=== PATIENT | female | born 1990 | race Caucasian/White ===

== ENCOUNTER 2020-06-17 13:14 | Outpatient (REF) | payer MEDICAID, SELFPAY ==
[2020-06-17 15:13] LABS: Hematocrit 40.2 % (37-47); Hemoglobin 13.8 g/dl (12.0-16.0); Mean Corpuscular HGB Conc 34.3 g/dl (31.0-35.0); Mean Corpuscular Volume 90.3 fL (80-98); Mean Platelet Volume 10.8 fL (9.4-12.3); Platelet Count 329 X10*3/uL (160-400); Red Blood Count 4.45 X10*6/uL (4.20-5.50); Red Cell Distribution Width 11.8 % (11.0-16.0)
[2020-06-17 16:48] LABS: CT PCR NOT DETECTED (Not Detect.); NG PCR NOT DETECTED (Not Detect.)
[2020-06-17 16:51] LABS: Syphilis Screen Nonreactive (Nonreactive)
[2020-06-18 04:45] LABS: HBsAGNum1 0.23 S/CO (0.00-0.99); HIV AB/AG Nonreactive (Nonreactive); HIV Num 1 0.08 S/CO (0.00-0.99); Hepatitis B Surface Antigen Negative (Negative); ~HepC Num1 0.06 S/CO (0.00-0.79); ~Hepatitis C Antibody Nonreactive (Nonreactive)
[2020-06-18 13:26] LABS: BV Int Neg Control Negative (Negative); BV Int Pos Control Positive (Positive)
== END 2020-06-17 13:15 | disposition home or self-care (01) ==
LOC: HO.LAB 13:14
PROVIDERS: Visit Provider Advanced Practice Midwife
DX: R10.2 Pelvic and perineal pain (principal); B96.89 Other specified bacterial agents as the cause of diseases classified elsewhere; N76.0 Acute vaginitis; Z12.4 Encounter for screening for malignant neoplasm of cervix; Z30.431 Encounter for routine checking of intrauterine contraceptive device; Z20.2 Contact with and (suspected) exposure to infections with a predominantly sexual mode of transmission
CPT/HCPCS: 36415; 85027; 86780; 86803; 87340; 87389; 87480; 87491; 87510; 87591; 87660; 88142; 99212

== ENCOUNTER → 2020-07-09 09:59 | Outpatient (BNVA) | payer MEDICAID, SELFPAY | PROVIDERS: Visit Provider Advanced Practice Midwife | DX: Z30.433 Encounter for removal and reinsertion of intrauterine contraceptive device (principal); Z87.891 Personal history of nicotine dependence | CPT/HCPCS: 58301; 58300; 81025; 99212 ==

== ENCOUNTER 2021-06-28 11:46 | Emergency (ER) | payer MEDICAID, SELFPAY ==
[2021-06-28 12:00] VITALS: BP 130/86; PULSE 80; RESP 16; TEMP 36.8; O2SAT 99; BMI 37.0
[2021-06-28 12:41] LABS: COVID-19 Test Positive (Negative)
[2021-06-28 12:48] LABS: Strep A Nucleic Acid Negative (Negative)
--- NOTE | 2021-06-28 12:51 | ED.GENADULT ---
HPI - General Adult General Chief complaint: General Medical Stated complaint: Sore throat/Headache Time Seen by Provider: 06/28/21 12:51 Source: patient Mode of arrival: ambulatory Limitations: no limitations History of Present Illness HPI narrative: 31-year-old female presents to the ER with complaints of sore throat and congestion for the last 2 days. She has not vaccinated for COVID-19. She has a mild dry cough but no shortness of breath or dyspnea. She has no chest pain or fevers. Some mild body aches and headache. She lives at home with her kids who are well. She has had no known COVID-19 exposures. MD complaint: Sore throat congestion Onset (ago): day(s) (2) Location: mouth, chest and back Radiation: non-radiation Severity: mild Quality: aching Pain Consistency: intermittent Relieving factors: none Exacerbating factors: none Associated symptoms: cough, headaches, loss of appetite and malaise Treatments prior to arrival: none Related Data Home Medications Medication Instructions Recorded Confirmed levonorgestrel 20 mcg/24 hours (7 INTRAUTERINE 07/09/20 yrs) 52 mg intrauterine device (Mirena) Previous Rx's Medication Instructions Recorded metronidazole 500 mg tablet 500 mg PO BID #14 tab 06/17/20 (Flagyl) Allergies Allergy/AdvReac Type Severity Reaction Status Date / Time No Known Allergies Allergy Verified 07/09/20 10:29 Review of Systems Review of Systems: Constitutional: No Fever, No Chills ENT/Mouth: + sore throat, No Rhinorrhea, No Swallowing Difficulty Cardiovascular: No Chest Pain, No SOB, No Orthopnea, No Edema Respiratory: + Cough, No Sputum, No Wheezing, No dyspnea Gastrointestinal: No Nausea, No Vomiting, No Diarrhea, No abdominal Pain Musculoskeletal: No joint pain, No Myalgias Skin: No Skin Lesions, No rash Neuro: No Weakness, No Numbness, No Dizziness, + Headache Psych: + Anxiety/Panic Heme/Lymph: No Lymphadenopathy PMFSH Family History Family History Mother HTN (hypertension) Social History Social History Alcohol intake: never Patient Tobacco Use Status: Never used Tobacco Use of substances other than those prescribed or required for medical reasons: No Advance Directives: No Advance Directives Information Provided: No Gender identity: Female Physical Exam Vital Signs: Vital Signs: Last Vital Signs Temp 98.3 F 06/28/21 12:00 Pulse 80 06/28/21 12:00 Resp 16 06/28/21 12:00 BP 130/86 06/28/21 12:00 Pulse Ox 99 06/28/21 12:00 BMI result Body Mass Index 37.0 Appearance: Alert. Oriented X3. No acute distress. HEENT: normal inspection CVS: Normal heart rate and rhythm. Pulses normal. Respiratory: No respiratory distress. Lungs CTAB Skin: Skin warm and dry. Normal skin color. Normal skin turgor. No rashes. Extremities: normal inspection, normal ROM Neuro: Oriented X 3. Grossly normal Course Course Course Narrative: 31-year-old female with no significant medical history presents to the ER with congestion and sore throat for the last couple of days. She has other signs and symptoms of mild COVID-19 disease. Her COVID-19 test today was positive. Her vital signs are normal with SpO2 99% on room air and her lungs are clear. She was counseled on diagnosis, management, and warning signs to come back to the emergency department for. At this time she is stable for discharge home with supportive care. Medical Decision Making Lab Data Labs: Lab Results 06/28/21 06/28/21 Range/Units 12:01 12:01 COVID-19 (BRYAN) Positive A (Negative) COVID-19 Clin Com See Note S. pyogenes GrpA AMPARO Negative (Negative) Critical Care Time Critical Care Time Critical Care Time: No Discharge Plan Discharge Clinical Impression: COVID-19 Patient Disposition: Home, Self-Care Instructions: Covid-19 Viral Syndrome and Novel Coronavirus (ED) Hey/Ath Additional Instructions: You were found to be COVID-19 POSITIVE today. Your exam and oxygen levels were normal. Rest. Drink plenty of fluids. Do not go out in public for the next 10 days. Wear your mask at home and disinfect all of the surfaces frequently to help prevent the spread of the disease. Take over the counter cold/flu medications as needed for your symptoms. Take Tylenol and/or Motrin as needed for fevers and body aches. Follow up with your doctor this week. If you develop difficulty breathing or any other concerning symptom come back to the ER for further evaluation. Prescriptions: No Action metronidazole [Flagyl] 500 mg tablet 500 mg PO BID Qty: 14 RF: 0 Mirena 20 mcg/24 hours (6 yrs) 52 mg intrauterine device intrauterine RF: 0 Interventions: ED Discharge Assessment Last Done: 06/28/21 13:05
== END 2021-06-28 13:06 | disposition home or self-care (01) ==
PROVIDERS: Emergency Provider Emergency Medicine
DX: U07.1 COVID-19 (principal); J02.9 Acute pharyngitis, unspecified
CPT/HCPCS: 36415; 87635; 87651; 99283

== ENCOUNTER 2021-10-13 13:25 | Emergency (ER) | payer MEDICAID, SELFPAY ==
[2021-10-13 14:39] VITALS: BP 127/83; PULSE 82; RESP 18; TEMP 36.8; O2SAT 98; BMI 39.0
[2021-10-13 15:06] LABS: IDNOW Serial# 16C4AD1C
[2021-10-13 15:07] LABS: COVID-19 Test Negative (Negative)
--- NOTE | 2021-10-13 15:58 | ED_ITS ---
HPI - General Adult General Chief complaint: General Medical Stated complaint: fever headache Time Seen by Provider: 10/13/21 15:22 Source: patient Mode of arrival: ambulatory Limitations: no limitations History of Present Illness HPI narrative: 31 y/o female with no medical history presents to the ER with 6 days of nausea, decreased PO intake, malaise and intermittent fever and chills. She states when she 1st developed symptoms last week she saw her doctor, tested negative for COVID and Flu and was told it was a self-limited GI bug that would get better in 2 days. She reports ongoing nausea, dry heaving and extreme smell sensitivity where everything she tries to eat smells awful. She reports a normal BM 6 days ago but none since. She has not eaten solid food since then. She reports decreased urination. No abdominal pain. Denies chance of , has IUD but is sexually active. MD complaint: nausea, decreased PO intake Onset (ago): day(s) (6) Location: abdomen Radiation: non-radiation Severity: moderate Severity scale (1-10): 6 Quality: aching Pain Consistency: intermittent Relieving factors: none Exacerbating factors: eating Associated symptoms: cough, fever/chills, headaches, loss of appetite, malaise and weakness Treatments prior to arrival: none Related Data Home Medications Medication Instructions Recorded Confirmed levonorgestrel 20 mcg/24 hours (7 INTRAUTERINE 07/09/20 yrs) 52 mg intrauterine device (Mirena) Previous Rx's Medication Instructions Recorded metronidazole 500 mg tablet 500 mg PO BID #14 tab 06/17/20 (Flagyl) ondansetron 4 mg disintegrating 4 mg PO Q8H PRN #10 tab 10/13/21 tablet Allergies Allergy/AdvReac Type Severity Reaction Status Date / Time No Known Allergies Allergy Verified 07/09/20 10:29 Review of Systems Review of Systems: Constitutional: + Fever, +Chills ENT/Mouth: No sore throat, No Rhinorrhea, No Swallowing Difficulty Eyes: No Eye Pain, No Swelling, No Redness Cardiovascular: No Chest Pain, No SOB, No Orthopnea, No Edema Respiratory: + Cough, No Sputum, No Wheezing, No dyspnea Gastrointestinal: + Nausea, + Vomiting, No Diarrhea, No abdominal Pain, No Hematochezia, No Melena Genitourinary: No Dysuria, No Urinary Frequency, No Hematuria Musculoskeletal: No joint pain, No Myalgias Skin: No Skin Lesions, No rash Neuro: + Weakness, No Numbness, No Dizziness, + Headache Psych: +Anxiety/Panic, No Depression Heme/Lymph: No Bruising, No Lymphadenopathy Endocrine: No Polyuria, No Polydipsia PMF Family History Family History Mother HTN (hypertension) Social History Social History Alcohol intake: never Patient Tobacco Use Status: Never used Tobacco Advance Directives: No Advance Directives Information Provided: No Gender identity: Female Physical Exam ED Vital Signs: Vital Signs - 24 hr 10/13/21 14:39 10/13/21 16:41 Temperature 98.3 F 98.0 F Pulse Rate 82 80 Respiratory Rate 18 18 Blood Pressure 127/83 128/82 Pulse Oximetry 98 98 BMI result Body Mass Index 39.0 Appearance: Alert. Oriented X3. No acute distress. Eyes: Pupils equal, round and reactive to light. ENT: Pharynx normal. Moist mucus membranes. Neck: Normal inspection. Neck supple. CVS: Normal heart rate and rhythm. Pulses normal. Respiratory: No respiratory distress. Breath sounds normal. Abdomen: Obese, Soft and nontender. +BS present but decreased x4 Skin: Skin warm and dry. Normal skin color. Normal skin turgor. No rashes. Extremities: No lower extremity edema. Neuro: Oriented X 3. No motor deficit. No sensory deficit. Course Course Course Narrative: 31 y/o female presenting with 6 days of nausea, decreased PO intake, intermittent vomiting, fevers/chills (now improved). Recently negative for COVID and FLu but was tested on the day symptoms started. Will retest now, she is unvaccinated. Her VS are normal and her exam is unremarkable. Will check basic labs, give IVF and zofran and reassess. Reevaluation(s) Reevaluation #1: Labs are unremarkable. Urinalysis is positive for leukocyte esterase and dark in color. There is also significant amount of squamous cells concerning for contamination. She has no urinary symptoms. Will hold off on antibiotics for now and follow up with the urine culture. She is tolerating emmett glenis and bites of crackers. She states the food tastes ?old. ? She has no appetite but is not vomiting. We discussed how her symptoms are most likely due to a viral illness and will improve on their own. Will send sublingual Zofran to her pharmacy and encourage p.o. at home. At this time she is stable for discharge home with supportive care and outpatient follow-up. Medical Decision Making Lab Data Result diagrams: 10/13/21 16:02 10/13/21 16:02 Labs: Lab Results 10/13/21 10/13/21 10/13/21 Range/Units 14:45 16:02 16:02 WBC 5.7 (4.8-10.8) X10*3/uL RBC 4.64 (4.20-5.50) X10*6/uL Hgb 14.2 (12.0-16.0) g/dl Hct 41.6 (37.0-47.0) % MCV 89.7 (80.0-98.0) fL MCH 30.6 (27.0-33.0) pg MCHC 34.1 (31.0-35.0) g/dl RDW 11.9 (11.0-16.0) % Plt Count 285 (160-400) X10*3/uL MPV 10.0 (9.4-12.3) fL Immature Gran % (Auto) 0.4 (0.0-0.4) % Neut % (Auto) 45.2 (45-73) % Lymph % (Auto) 47.6 H (20-40) % [place] % (Auto) 5.4 (2-11) % Eos % (Auto) 0.7 (0-4) % Baso % (Auto) 0.7 (0-2) % Lymph # (Auto) 2.7 (1.2-4.9) X10*3/uL [place] # (Auto) 0.3 (0.1-1.2) X10*3/uL Eos # (Auto) 0.0 (0.0-0.4) X10*3/uL Baso # (Auto) 0.0 (0.0-0.2) X10*3/uL Abs Immat Gran (auto) 0.02 (0.00-0.03) X10*3/uL Absolute Neuts (auto) 2.6 (2.0-8.3) x10*3/uL Absolute Nucleated RBC 0.000 (0.0-0.012) X10*3/uL Nucleated RBC % (auto) 0.0 (0.0-0.2) /100WBC Sodium 140 (135-145) mmol/L Potassium 4.2 (3.3-5.1) mmol/L Chloride 103 (96-108) mmol/L Carbon Dioxide 31 H (22-29) mmol/L Anion Gap 10 L (12-20) BUN 5 L (9-16) mg/dL Creatinine 0.64 (0.5-1.4) mg/dL Estim Creat Clear Calc 130.1 Estimated GFR > 60 Random Glucose 87 (60-115) mg/dL Calcium 9.6 (8.4-10.2) mg/dL Magnesium 2.8 H (1.6-2.6) mg/dL Total Bilirubin 0.3 (0.0-1.0) mg/dL Direct Bilirubin < 0.2 (0.0-0.5) mg/dL AST 75 H (5-31) U/L ALT 102 H (0-31) U/L Alkaline Phosphatase 120 H (39-117) U/L Total Protein 7.5 (6.5-8.0) g/dL Albumin 4.4 (3.5-5.0) g/dL Urine Color Urine Appearance Urine pH (5.0-8.0) Ur Specific [place] (1.005-1.025) Urine Protein (NEG-TRACE) MG/DL Urine Glucose (UA) (NEG) MG/DL Urine Ketones (NEG) MG/DL Urine Blood (NEG) Urine Nitrite (NEG) Ur Leukocyte Esterase (NEG) Urine RBC (0) /HPF Urine WBC (0-4) /HPF Ur Squamous Epith Cells /LPF Urine Bacteria /LPF Urine Mucus /LPF Urine Test (NEGATIVE) COVID-19 ([facility]) Negative (Negative) COVID-19 Clin Com See Note 10/13/21 10/13/21 Range/Units 16:02 16:02 WBC (4.8-10.8) X10*3/uL RBC (4.20-5.50) X10*6/uL Hgb (12.0-16.0) g/dl Hct (37.0-47.0) % MCV (80.0-98.0) fL MCH (27.0-33.0) pg MCHC (31.0-35.0) g/dl RDW (11.0-16.0) % Plt Count (160-400) X10*3/uL MPV (9.4-12.3) fL Immature Gran % (Auto) (0.0-0.4) % Neut % (Auto) (45-73) % Lymph % (Auto) (20-40) % [place] % (Auto) (2-11) % Eos % (Auto) (0-4) % Baso % (Auto) (0-2) % Lymph # (Auto) (1.2-4.9) X10*3/uL [place] # (Auto) (0.1-1.2) X10*3/uL Eos # (Auto) (0.0-0.4) X10*3/uL Baso # (Auto) (0.0-0.2) X10*3/uL Abs Immat Gran (auto) (0.00-0.03) X10*3/uL Absolute Neuts (auto) (2.0-8.3) x10*3/uL Absolute Nucleated RBC (0.0-0.012) X10*3/uL Nucleated RBC % (auto) (0.0-0.2) /100WBC Sodium (135-145) mmol/L Potassium (3.3-5.1) mmol/L Chloride (96-108) mmol/L Carbon Dioxide (22-29) mmol/L Anion Gap (12-20) BUN (9-16) mg/dL Creatinine (0.5-1.4) mg/dL Estim Creat Clear Calc Estimated GFR Random Glucose (60-115) mg/dL Calcium (8.4-10.2) mg/dL Magnesium (1.6-2.6) mg/dL Total Bilirubin (0.0-1.0) mg/dL Direct Bilirubin (0.0-0.5) mg/dL AST (5-31) U/L ALT (0-31) U/L Alkaline Phosphatase (39-117) U/L Total Protein (6.5-8.0) g/dL Albumin (3.5-5.0) g/dL Urine Color DK YELLOW Urine Appearance CLOUDY Urine pH 7.0 (5.0-8.0) Ur Specific [place] 1.015 (1.005-1.025) Urine Protein TRACE (NEG-TRACE) MG/DL Urine Glucose (UA) NEG (NEG) MG/DL Urine Ketones NEG (NEG) MG/DL Urine Blood NEG (NEG) Urine Nitrite NEG (NEG) Ur Leukocyte Esterase 3+ H (NEG) Urine RBC 0 (0) /HPF Urine WBC 5-9 H (0-4) /HPF Ur Squamous Epith Cells 4+ /LPF Urine Bacteria NONE /LPF Urine Mucus 4+ /LPF Urine Test NEGATIVE (NEGATIVE) COVID-19 ([facility]) (Negative) COVID-19 Clin Com Discharge Plan Discharge Clinical Impression: Nausea & vomiting Patient Disposition: Home, Self-Care Instructions: Acute Nausea and Vomiting (ED) Additional Instructions: You lab workup today was unremarkable. Your urine test was negative . You most likely have a viral GI bug also known as gastroenteritis. Treatment is supportive care, symptoms usually resolve on their own in 48-72 hours. Recommend rest and plenty of oral hydration. Stick to a bland diet like soup and toast while you are not feeling well. Take the prescribed medication as needed for nausea. Recommend over the counter Pepto Bismol or Imodium for upset stomach and diarrh ea. Follow up with your doctor as needed. If you develop new or worsening symptoms call 911 or come back to the ER for further evaluation. Prescriptions: New ondansetron 4 mg tablet,disintegrating 4 mg PO Q8H PRN (Reason: nausea and vomiting) Qty: 10 0RF No Action metronidazole [Flagyl] 500 mg tablet 500 mg PO BID Qty: 14 0RF Mirena 20 mcg/24 hours (6 yrs) 52 mg intrauterine device intrauterine 0RF Referrals: [facility] [Primary Care Provider] - 2 days Stand Alone Forms: Work/School Release
[2021-10-13] MEDS: 0.9 % Sodium Chloride 1,000 ML 999 ML IVCONT ×2 (16:04→17:07)
[2021-10-13 16:06] LABS: MANUAL DIFF FLAG NO
[2021-10-13 16:09] LABS: Appearance Urine CLOUDY; Basophils Percent Auto 0.7 % (0-2); Color Urine DK YELLOW; Eosinophils Percent Auto 0.7 % (0-4); Glucose Urine UA NEG (NEG); Hematocrit 41.6 % (37.0-47.0); Hemoglobin 14.2 g/dl (12.0-16.0); Imm Gran Abs Auto 0.02 X10*3/uL (0.00-0.03); Imm Gran Pct Auto 0.4 % (0.0-0.4); Leukocyte Esterase Urine 3+ (NEG); Lymphocytes Absolute Auto 2.7 X10*3/uL (1.2-4.9); Lymphocytes Percent Auto 47.6 % (20-40); Mean Corpuscular HGB Conc 34.1 g/dl (31.0-35.0); Mean Corpuscular Hemoglobin 30.6 pg (27.0-33.0); Mean Corpuscular Volume 89.7 fL (80.0-98.0); Monocytes Absolute Auto 0.3 X10*3/uL (0.1-1.2); Monocytes Percent Auto 5.4 % (2-11); Neutrophils Absolute Auto 2.6 x10*3/uL (2.0-8.3); Neutrophils Percent Auto 45.2 % (45-73); Nitrite Urine NEG (NEG); Platelet Count 285 X10*3/uL (160-400); Red Blood Count 4.64 X10*6/uL (4.20-5.50); Red Cell Distribution Width 11.9 % (11.0-16.0); Specific Gravity - Urine 1.015 (1.005-1.025); UACC Culture Trigger YES; Urine Blood NEG (NEG); Urine Ketones NEG (NEG); Urine Protein TRACE MG/DL (NEG-TRACE); White Blood Count 5.7 X10*3/uL (4.8-10.8)
[2021-10-13 16:11] LABS: UPreg QC Valid YES; Urine Pregnancy NEGATIVE (NEGATIVE)
[2021-10-13] MEDS: ondansetron HCL 4 MG/2 ML VIAL IVPUSH (16:15)
[2021-10-13 16:20] LABS: Mucus Urine 4+ /LPF; RBC Urine 0 /HPF (0); Squamous Epithelial Cell Urine 4+ /LPF
[2021-10-13 16:24] LABS: Alanine Aminotransferase 102 U/L (0-31); Albumin Level 4.4 g/dL (3.5-5.0); Alkaline Phosphatase 120 U/L (39-117); Anion Gap 10 (12-20); Aspartate Amino Transferase 75 U/L (5-31); Bilirubin Direct < 0.2 mg/dL (0.0-0.5); Bilirubin Total 0.3 mg/dL (0.0-1.0); Blood Urea Nitrogen 5 mg/dL (9-16); Calcium 9.6 mg/dL (8.4-10.2); Carbon Dioxide 31 mmol/L (22-29); Chloride 103 mmol/L (96-108); Creatinine Clr Calc Pharmacy 130.1; Estimated Glomerular Filt Rate > 60; Glucose Random 87 mg/dL (60-115); Magnesium 2.8 mg/dL (1.6-2.6); Potassium 4.2 mmol/L (3.3-5.1); Sodium 140 mmol/L (135-145); Total Protein 7.5 g/dL (6.5-8.0)
[2021-10-13 16:41] VITALS: BP 128/82; PULSE 80; RESP 18; TEMP 36.7; O2SAT 98
== END 2021-10-13 19:14 | disposition home or self-care (01) ==
PROVIDERS: Physician Assistant; Emergency Provider Emergency Medicine
DX: R11.2 Nausea with vomiting, unspecified (principal); Z20.822 Contact with and (suspected) exposure to COVID-19
CPT/HCPCS: 36415; 80048; 80076; 81001; 81025; 83735; 85025; 87086; 87635; 96361; 96374; 99284; J2405

== ENCOUNTER 2022-08-13 12:15 | Emergency (ER) | payer MEDICAID, SELFPAY ==
--- NOTE | ~2022-08-13 | XR_ITS ---
EXAMINATION: XR KNEE, RIGHT CLINICAL INFORMATION: Clicking with walking COMPARISON: None TECHNIQUE: Four views of the right knee. FINDINGS: No acute fracture or subluxation. Compartmental joint spaces are maintained. No joint effusion. The soft tissues are unremarkable. XR/XR knee RT 4V IMPRESSION: Normal right knee.
[2022-08-13 12:30] VITALS: BP 128/72; PULSE 76; RESP 18; TEMP 36.5; O2SAT 98; BMI 34.0
--- NOTE | 2022-08-13 12:40 | ED.LOWEXIN ---
HPI - Extremity Injury (Lower) General Chief Complaint: Extremity Injury, Lower <Mabel Kearney NP - Last Filed: 08/13/22 12:40> Stated Complaint: r knee inj <Mabel Kearney NP - Last Filed: 08/13/22 12:40> Time Seen by Provider: 08/13/22 13:36 <Mabel Kearney NP - Last Filed: 08/13/22 12:40> Source: patient <Rm Mendoza - Last Filed: 08/13/22 14:02> Limitations: no limitations <Rm Mendoza - Last Filed: 08/13/22 14:02> History of Present Illness HPI Narrative: 32-year-old female presents to the ER complaining of right knee pain. Patient was recently at the gym and felt the pain on the either side of her knee with with a sound of click with flexion extension after doing squats. Patient denies any blunt trauma or falls to the right knee. No prior injuries to this knee. Symptoms are [id number] pain is 6/10. Patient denies nausea vomiting chest pain or shortness of breath and no other complaints at this time. <Rm Mendoza - Last Filed: 08/13/22 14:02> Related Data Home Medications: Home Medications Medication Instructions Recorded Confirmed levonorgestrel 20 mcg/24 hours (8 intrauterine 07/09/20 yrs) 52 mg intrauterine device (Mirena) Previous Rx's Medication Instructions Recorded metronidazole 500 mg tablet 500 mg PO BID #14 tabs 06/17/20 (Flagyl) ondansetron 4 mg disintegrating 4 mg PO Q8H PRN nausea and 10/13/21 tablet vomiting #10 tabs naproxen 500 mg tablet (Naprosyn) 500 mg PO BID PRN pain #30 tabs 08/13/22 <Mabel Kearney NP - Last Filed: 08/13/22 12:40> Allergies/Adverse Reactions: Allergies Allergy/AdvReac Type Severity Reaction Status Date / Time No Known Allergies Allergy Verified 07/09/20 10:29 <Mabel Kearney NP - Last Filed: 08/13/22 12:40> Review of Systems Review of Systems: Constitutional : No Weight loss, No Fever, No Chills, ENT/Mouth : No sore throat Eyes: No vision changes Cardiovascular : No Chest Pain, No SOB Respiratory : No shortness of breath or cough Gastrointestinal : No Nausea, No Vomiting, No Diarrhea Musculoskeletal : Right knee pain Neuro : No headache <Rm Mendoza - Last Filed: 08/13/22 14:02> [facility] Family History Family History: Family History Mother HTN (hypertension) <Mabel Kearney NP - Last Filed: 08/13/22 12:40> Social History Social History: Social History Alcohol intake: never Patient Tobacco Use Status: Never used Tobacco Advance Directives: No Gender identity: Female <Mabel Kearney NP - Last Filed: 08/13/22 12:40> Physical Exam Vital Signs: Vital Signs: Last Vital Signs Temp 97.7 F 08/13/22 12:30 Pulse 76 08/13/22 12:30 Resp 18 08/13/22 12:30 BP 128/72 08/13/22 12:30 Pulse Ox 98 08/13/22 12:30 BMI result Body Mass Index 34.0 <Mabel Kearney NP - Last Filed: 08/13/22 12:40> Vital Signs: Last Vital Signs Temp 97.7 F 08/13/22 12:30 Pulse 76 08/13/22 12:30 Resp 18 08/13/22 12:30 BP 128/72 08/13/22 12:30 Pulse Ox 98 08/13/22 12:30 BMI result Body Mass Index 34.0 <Rm Mendoza - Last Filed: 08/13/22 14:02> Const: General: cooperative, healthy appearing, well developed, alert and awake <Rm Mendoza - Last Filed: 08/13/22 14:02> HEENT: Other: Oropharynx is clear <Rm Mendoza - Last Filed: 08/13/22 14:02> Neck: Neck: Yes normal visual inspection <Rm Mendoza - Last Filed: 08/13/22 14:02> Chest: Chest palpation & inspection: normal inspection of the chest <Rm Mendoza - Last Filed: 08/13/22 14:02> Resp: Effort & Inspection: normal respiratory effort and able to speak in complete sentences <Rm Mendoza - Last Filed: 08/13/22 14:02> Skin: Other: Warm dry no rashes noted <Rm Mendoza - Last Filed: 08/13/22 14:02> Neuro: Other: Patient is alert oriented x3 speech is intact no focal deficit noted <Rm Mendoza - Last Filed: 08/13/22 14:02> Extrem: Other: Right knee positive joint line tenderness, no joint laxity noted on drawer test. Positive pain on Apley's grind test of the right knee. Pain increases flexion-extension. <Rm Mendoza - Last Filed: 08/13/22 14:02> Course Course Course Narrative: This is a rapid medical exam. Defer additional HPI, ROS, PE department provider. 32-year-old female here with right knee pain after working out at the gym yesterday. Will obtain x-ray. Vitals stable <Mabel Kearney NP - Last Filed: 08/13/22 12:40> This is a rapid medical exam. Defer additional HPI, ROS, PE department provider. 32-year-old female here with right knee pain after working out at the gym yesterday. Will obtain x-ray. Vitals stable Right knee pain Right knee meniscal injury Right knee underline Ligament injury less likely Right knee cartilage injury <Rm Mendoza - Last Filed: 08/13/22 14:02> Medical Decision Making Medical Decision Making MDM Narrative: 32-year-old female with atraumatic right knee pain. Patient feels clicking with flexion extension. Pain is increased since recent visit to the gym. No prior injuries to the right knee. On clinical exam symptoms are consistent with potential meniscal injury and are cartilage injury. Neoprene knee brace will be recommended ice rest elevation patient does not want crutches at this time. Will plan to refer to orthopedics. For further evaluation. Plan to discharge patient home on NSAIDs. <Rm Mendoza - Last Filed: 08/13/22 14:02> Radiology Impression Radiologist Impression: Diagnostics DATE TYPE STATUS REF RANGE/AUTHOR Hx Today 12:44 Gurinder Osuna [facility] 32, F0 1990 REG ER, Emergency Minor Care Pivot EX2 -[id number] 5ft 78.925kg BMI: 34.0kg/m? Extremity Injury, Lower Search Chart ONSET No Data to Display No Data to Display No Data to Display Signed Today No Data to Display CURRENT Today 12:30 Diagnostics Reports Gita Purdy 32 F 1990 Allergy/Adv: No Known Allergies [address] [address]UL[place] ReportSigned Patient: Gita PurdyMR#: [id number]: 1990Acct:[id number]/Sex: 32 / FADM Date: 08/13/22Loc: HO.EDAttending Dr: Ordering Physician: Generic ED Physician Date of Service: 08/13/22 Procedure(s): XR knee RT 4V Accession Number(s): [id number] cc: Generic ED Physician~ EXAMINATION: XR KNEE, RIGHT CLINICAL INFORMATION: Clicking with walking COMPARISON: None TECHNIQUE: Four views of the right knee. FINDINGS: No acute fracture or subluxation. Compartmental joint spaces are maintained. No joint effusion. The soft tissues are unremarkable. XR/XR knee RT 4V IMPRESSION: Normal right knee. Dictated By:Gurinder Osuna MDSigned By:<Electronically signed by Gurinder Osuna MD in [place]>08/13/22 1327 DD/ 1244TD/TT: Fitness Consultant: JEREMIAH <Rm Mendoza - Last Filed: 08/13/22 14:02> Discharge Plan Discharge Clinical Impression: Acute pain of right knee <Mabel Kearney NP - Last Filed: 08/13/22 12:40> Patient Disposition: Home, Self-Care <Mabel Kearney NP - Last Filed: 08/13/22 12:40> Instructions: Knee Pain (ED) <DARRELL Wade Last Filed: 08/13/22 12:40> Additional Instructions: Rest ice elevation You may use an [id number] knee brace Follow-up with orthopedics as recommended Your x-ray shows no acute findings but cannot rule out underlying meniscal injury Return if symptoms worsen <DARRELL Wade Last Filed: 08/13/22 12:40> Prescriptions: New naproxen [Naprosyn] 500 mg tablet 500 mg PO BID PRN (Reason: pain) Qty: 30 0RF No Action ondansetron 4 mg tablet,disintegrating 4 mg PO Q8H PRN (Reason: nausea and vomiting) Qty: 10 0RF metronidazole [Flagyl] 500 mg tablet 500 mg PO BID Qty: 14 0RF Mirena 20 mcg/24 hours (6 yrs) 52 mg intrauterine device intrauterine <Mabel Kearney NP - Last Filed: 08/13/22 12:40> Referrals: Carole Ness MD [Physician] - (Right knee pain question underlying meniscal injury) <Mabel Kearney NP - Last Filed: 08/13/22 12:40> Stand Alone Forms: Work/School Release <Mabel Kearney NP - Last Filed: 08/13/22 12:40>
== END 2022-08-13 14:20 | disposition home or self-care (01) ==
PROVIDERS: Emergency Provider Student in an Organized Health Care Education/Training Program
DX: M25.561 Pain in right knee (principal); Z79.899 Other long term (current) drug therapy
CPT/HCPCS: 73564; 99282; 99283

== ENCOUNTER 2022-08-27 08:53 | Outpatient (REF) | payer MEDICAID, SELFPAY ==
--- NOTE | ~2022-08-27 | XR_ITS ---
EXAMINATION: XR KNEE AP STANDING, BILATERAL XR KNEE, RIGHT CLINICAL INFORMATION: Pain in knee. COMPARISON: X-rays of the right knee July 2022. TECHNIQUE: AP bilateral standing view of the knees was obtained. Patella view right knee. FINDINGS: Right Knee: The bones, joints and soft tissues are normal. Evaluation for joint effusion is limited given the lack of lateral view. Left Knee Limited: Marginal osteophytes noted about the medial compartment indicative of mild arthrosis. Lateral compartment normal. Bone and soft tissues unremarkable. Evaluation for future limited without lateral view. XR/XR knee standing BI IMPRESSION: RIGHT KNEE: Normal. LEFT KNEE: Mild arthrosis of the medial compartment.
--- NOTE | ~2022-08-27 | XR_ITS ---
EXAMINATION: XR KNEE AP STANDING, BILATERAL XR KNEE, RIGHT CLINICAL INFORMATION: Pain in knee. COMPARISON: X-rays of the right knee July 2022. TECHNIQUE: AP bilateral standing view of the knees was obtained. Patella view right knee. FINDINGS: Right Knee: The bones, joints and soft tissues are normal. Evaluation for joint effusion is limited given the lack of lateral view. Left Knee Limited: Marginal osteophytes noted about the medial compartment indicative of mild arthrosis. Lateral compartment normal. Bone and soft tissues unremarkable. Evaluation for future limited without lateral view. XR/XR knee RT 1V IMPRESSION: RIGHT KNEE: Normal. LEFT KNEE: Mild arthrosis of the medial compartment.
== END 2022-08-27 08:54 | disposition home or self-care (01) ==
LOC: HO.HOSX 08:53
PROVIDERS: Visit Provider Physician Assistant
DX: M22.41 Chondromalacia patellae, right knee (principal)
CPT/HCPCS: 73560; 73565; 99202

== ENCOUNTER 2023-01-26 10:40 | Outpatient (REF) | payer MEDICAID, SELFPAY ==
[2023-01-26 13:58] LABS: Alanine Aminotransferase 19 U/L (0-31); Albumin Level 4.3 g/dL (3.5-5.0); Alkaline Phosphatase 68 U/L (39-117); Anion Gap 14 (12-20); Aspartate Amino Transferase 15 U/L (5-31); Bilirubin Total 0.6 mg/dL (0.0-1.0); Blood Urea Nitrogen 10 mg/dL (9-16); Calcium 10.2 mg/dL (8.4-10.2); Carbon Dioxide 24 mmol/L (22-29); Chloride 105 mmol/L (96-108); Estimated Glomerular Filt Rate > 60; Glucose Random 80 mg/dL (60-115); Potassium 3.7 mmol/L (3.3-5.1); Sodium 139 mmol/L (135-145); Total Protein 7.2 g/dL (6.5-8.0)
[2023-01-26 14:05] LABS: Cholesterol 202 mg/dL; HDL Cholesterol 46 mg/dL; LDL Cholesterol Calculated 140 mg/dl; Triglycerides 80 mg/dL
[2023-01-26 14:08] LABS: TSH reflex Free T4 1.79 uIU/mL (0.32-4.0); Vitamin D 25-OH Total 24.7 ng/mL (>30)
[2023-01-26 14:14] LABS: Reflex LDLD? No
[2023-01-27 02:23] LABS: Syphilis Screen Nonreactive (Nonreactive)
[2023-01-27 03:06] LABS: HBS Num1 0.24 mIU/mL (0-7.99); HBsAGNum1 0.29 S/CO (0.00-0.99); HIV AB/AG Nonreactive (Nonreactive); HIV Num 1 0.06 S/CO (0.00-0.99); Hepatitis A Antibody IgM 0.14 Index (0-0.79); Hepatitis B Core Antibody Nonreactive (Nonreactive); Hepatitis B Surface Antigen Negative (Negative); ~HepC Num1 0.06 S/CO (0.00-0.79); ~Hepatitis A Antibody IgM Nonreactive (Nonreactive); ~Hepatitis B Surface Antibody NONREACTIVE (Nonreactive); ~Hepatitis C Antibody Nonreactive (Nonreactive)
[2023-01-28 16:19] LABS: TS Negative Control Passed; TS Panel A 0; TS Panel B 3; TS Positive Control Passed; TSpotTB Negative (Negative)
[2023-01-29 02:09] LABS: Mumps Virus IgG Antibody <9.00 AU/mL; Rubeola IgG (Measles) >300.00 AU/mL
[2023-01-29 05:48] LABS: Rubella IgG Antibody 4.57 Index
== END 2023-01-26 10:41 | disposition home or self-care (01) ==
LOC: HO.HHCL 10:40
PROVIDERS: Visit Provider Internal Medicine
DX: Z00.00 Encounter for general adult medical examination without abnormal findings (principal); Z11.4 Encounter for screening for human immunodeficiency virus [HIV]; Z11.1 Encounter for screening for respiratory tuberculosis; E66.09 Other obesity due to excess calories; Z68.30 Body mass index [BMI] 30.0-30.9, adult; N64.4 Mastodynia; Z72.51 High risk heterosexual behavior
CPT/HCPCS: 36415; 80053; 80061; 82306; 84443; 86481; 86704; 86706; 86709; 86735; 86762; 86765; 86780; 86803; 87340; 87389

== ENCOUNTER 2024-01-26 11:22 | Outpatient (REF) | payer MEDICAID, SELFPAY ==
[2024-01-26 15:08] LABS: Bacterial Vaginosis PCR POSITIVE (Negative); Candida Group PCR NOT DETECTED (Not Detect); Candida glab krusei PCR NOT DETECTED (Not Detect); Trichomonas vaginalis PCR NOT DETECTED (Not Detect)
[2024-01-26 15:25] LABS: CT PCR DETECTED (Not Detect.); NG PCR NOT DETECTED (Not Detect.)
[2024-01-27 08:31] LABS: HIV AB/AG Nonreactive (Nonreactive); HIV Num 1 0.05 S/CO (0.00-0.99)
[2024-01-27 08:45] LABS: Syphilis Screen Nonreactive (Nonreactive)
== END 2024-01-26 11:23 | disposition home or self-care (01) ==
LOC: HO.HHCL 11:22
PROVIDERS: Visit Provider Internal Medicine
DX: Z72.51 High risk heterosexual behavior (principal)
CPT/HCPCS: 0352U; 36415; 86780; 87389; 87491; 87591

== ENCOUNTER 2024-09-27 09:59 | Outpatient (AMB) | payer MEDICAID, SELFPAY ==
--- NOTE | 2024-09-27 10:01 | A.OFFVIS_ITS ---
Vital Signs 09/27/24 10:03 Height 5 ft Weight 174 lb BMI 34.0 BP 126/72 Intake Visit Reasons: New patient Annual Night Order Selector: Night Order Selector Present (Frnacesca) Accompanied by: Self / Same As Patient Allergies No Known Allergies Allergy (Verified 09/27/24 10:03) Medication List - Last Reconciled 09/27/24 by Juhi Blank CNM levonorgestrel (Mirena) intrauterine Is last menstrual period known: No Post menopausal: No Patient : No HPI HPI New patient Annual: Details: She is not actually new to this practice been 5 years since she was. She has had her children this practice her last child was born 10 years ago and her 1st Mirena was inserted sometime after that. Five years ago the Mirena was replaced on 07/09/2020 by this provider. She has had no problems with it since she does not get her period at all she has tried to feel the string but does not feel it she does have long artificial nails. She is not having any issues or concerns and has no worries about STDs but accepts testing with the vaginal testing. she is using the mirena for control. She has two kids, and doesnt want any more. 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 [facility] Family History Mother HTN (hypertension) Social History Alcohol intake: never Patient Tobacco Use Status: Never used Tobacco Gender identity: Female Female Reproductive History Menstrual Age of Menarche: 11 control method: progestin IUCD (Mirena) Total pregnancies: 2 Full term: 2 Date of last pap smear: 06/17/20 (negative pap smear) History of abnormal pap smear: No Physical Exam Vital Signs: Last Vital Signs BP 126/72 09/27/24 10:03 BMI result Body Mass Index 34.0 Const General: healthy appearing, comfortable, no acute distress, well developed and alert Nutritional Appearance: average body habitus Orientation/consciousness: patient oriented x3 Limitations: no limitations HEENT Head: Yes normocephalic Neck Neck: Yes normal visual inspection Chest Chest palpation & inspection: normal inspection of the chest Breast/axilla inspection: normal inspection of the breasts and normal inspection of the axillae Breast/axilla palpation: normal palpation of the breasts and normal palpation of the axillae Resp Effort & Inspection: normal respiratory effort GI Inspection: Yes normal to inspection, No Abdominal wall edema and No distended Palpation (GI): Soft to palpation and nontender Other: Normal external exam vagina is pink and moist healthy appearing there is a little bit of a slightly yellowish watery bubbly discharge we will await testing results . Testing done for gonorrhea chlamydia trichomoniasis Luzmaria and BV. Good tone with Kegel Cervix parous with IUD string visible and palpable cervix nontender uterus midposition mobile nontender adnexa nontender. General: Yes bladder normal to palpation External Female Exam: normal external appearance and normal appearance of the urethra Speculum Exam - Vagina: normal appearance of the vagina, normal palpation and normal vaginal discharge Speculum Exam - Cervix: normal appearance of the cervix, normal palpation and nontender Bimanual exam- vagina & uterus: normal bimanual exam, normal palpation, uterine size normal, bladder normal to palpation, consistency normal, normal palpation, uterine mobility normal, uterine shape normal, No Cervical tenderness present, non-tender and no cervical motion tenderness Bimanual Exam- Adnexa, other: normal adnexae, no masses, normal and No adnexal tenderness Neuro General: patient oriented x3 Assessment & Plan Assessment & Plan (1) IUD check up: Code(s): Z30.431 - Encounter for routine checking of intrauterine contraceptive device Category: Medical (2) Presence of 52 mg levonorgestrel-releasing intrauterine device (IUD): Comment: inserted 07/09/20. Code(s): Z97.5 - Presence of (intrauterine) contraceptive device Category: Social Hx (3) Well woman exam with routine gynecological exam: Code(s): Z01.419 - Encounter for gynecological examination (general) (routine) without abnormal findings Category: Medical (4) Cervical cancer screening: Code(s): Z12.4 - Encounter for screening for malignant neoplasm of cervix Category: Medical Plan -----Discussed in this visit the following: healthy balanced diet, regular and consistent exercise, getting recommended health screens, doing the best she can for her particular health concerns, kegel exercises, pap smear screening and followup recommendations, mammography screening and SBE, normal changes in cycles in her life stage--- Reviewed how the Mirena works and its affect on menstrual cycles and menses and the other common changes that women sometimes notice on mood weight another subtle cyclic changes. Reviewed that 1 of the reasons we insert the Mirena at the beginning of the menses is because of the typical physiologic changes that happen with menses that allow for the cervix to be slightly softened and open a very tiny bit which allow for more easy insertion of the Mirena. Also discussed the initial recommendations to use the Mirena IUD for contraception for up to 5 years. Some recent studies are indicating that it can be used for longer and there are current recommendations saying it can be left for longer period of time when used for contraception, up to 8 years and it can be used for 5 years when it is being used to help control abnormal bleeding. However, many women, whose periods went away for the 1st few years of having the Mirena, have reported that around 4-1/2-5 years into its use, they have noticed return of full menses, and return of ovulatory signs and symptoms midcycle. This varies from women to woman. In addition women who have had it to help control bleeding, have had amenorrhea for very many years and sometimes have opted to leave it in longer if they are still not bleeding, when they are not concerned about contraception. I recommend the she pay attention to how the effects are acting on her own body, and cycles, and always take care to be aware of this. And if she is using it for contraception, and the consequences of conceiving would be great for her, she would be osuna to pay attention to this, and not depend on it, if she has a return to fertility and symptoms of fertility before 8 yrs. And if she desires replacement, she should return for replacement at the appropriate time. Testing done for gonorrhea chlamydia trichomoniasis as well as bacterial vaginosis and yeast and her Pap smear was done as well. How to check for negative results on the portal but we would call her for any positive results. RTC 1 year. Timeframe/Date Comment rtc 1 yr . Coding Level of Care Code New Pt Prev Care 18-39yr([id number] Diagnoses IUD check up Z30.431 Presence of 52 mg levonorgestrel-releasing intrauterine device (IUD) Z97.5 Well woman exam with routine gynecological exam Z01.419 Cervical cancer screening Z12.4
[2024-09-27 10:03] VITALS: BP 126/72; BMI 34.0
--- OUTSIDE RECORDS SUMMARY | 2024-09-27 11:20 | XMS_ITS | Clinical Summary ---
Author Organization [employer] Address [address] [place] [address] Care Team Providers Care Wool Buyer Name Role Phone Courtney Case MD Primary Care Provider + Allergies No known active allergies Medications * This document contains information received from the source organization and may not represent a complete record from that organization. No known medications Active Problems Problem Noted Date Diagnosed Date Encounter for immunization 01/26/2024 Exercise counseling 01/21/2023 Assessment & Plan (01/21/2023 10:13 AM EDT): Discussed re weight reduction options including exercise, life style modifications, diet, referral to certified peer specialist. Discussed re lower calorie intake, increase dietary fiber Dietary counseling 01/21/2023 Assessment & Plan (01/21/2023 10:13 AM EDT): Discussed re weight reduction options including exercise, life style modifications, diet, referral to certified peer specialist. Discussed re lower calorie intake, increase dietary fiber Risk for sexually transmitted disease 01/21/2023 Assessment & Plan (01/26/2024 11:29 AM EDT): - discussed about use of condoms at all times, call STI clinic services PRN - order STI testing and f/u PRN Assessment & Plan (01/21/2023 10:14 AM EDT): Other STI testing Counseled regarding condom use discussed with pt about our confidenetial STI walkin clinic check for STI today Encounter for preventive health examination 12/2022 Assessment & Plan (01/26/2024 11:29 AM EDT): Discussed with patient re increase fresh fruit and vegetable intake. Counseled re moderate exercise as tolerated, up to 20 min/d Patient feels safe at home. PAP smear: pt due for pap smear this year, she will call [facility] trial justice to schedule or will f/u next year Eye exam: overdue, will send message to eye clinic to schedule appointment Lipids/FBS: up to date, next one due 2027 Vaccinations: Hep-B booster today, other IZ are up to date Dental visit: overdue, pt to call dental clinic to schedule appointment Assessment & Plan (01/21/2023 10:12 AM EDT): Discussed with patient re increase fresh fruit and vegetable intake. Counseled re moderate exercise as tolerated, up to 20min/d Patient feels safe at home. PAP smear Obtain FUNERAL HOME DIRECTOR note from [facility] and fu next visit Eye exam up to date next one due 2023 Lipids/FBS TBO Vaccinations Overdue for Covid, declined IZ today, Td due on 2025, check IZ titers Dental visit up to date, next one due May 2023 Headache disorder 01/20/2023 Depressive disorder 01/20/2023 Assessment & Plan (01/26/2024 3:03 PM EDT): - feels safe at home, wants psychotherapy - refer to again, seen last year but never had f/u appointment. Assessment & Plan (01/25/2023 9:50 AM EDT): Assessment: Patient with history of depression (depressed mood beginning in her 20's without known trigger, difficulty falling asleep, decreased energy, poor appetite, feelings of guilt,and increased fidgeting). Symptoms are in the context of biopsychosocial stressors of lack of coping mechanisms an family stressors . Patient will benefit from OP therapy, deep breathing, and increasing physical activity. At this time Gita Purdy meets criteria for Visit Diagnoses: Problem List Items Addressed This Visit Other Depressive disorder Patient ready to address current needs Yes Strengths- Gita is in the action stage of change PLAN: 1. Follow up with [facility]: Not recommended for follow-up 2. Patient goal is to engage in OP therapy to increase coping mechanisms and decrease depression symptoms 3. Behavioral Recommendations a. Deep breathing b. Increase physical activity c. OP therapy Assessment & Plan (01/21/2023 12:32 PM EDT): Pt out of care for more than 6 months, previously in N Refer to , will FU in 3 weeks to evalute for medication needs Pt is able to reach out for safety and feels safe at home. Pain of breast 12/22/2017 Assessment & Plan (01/21/2023 12:32 PM EDT): PE is normal, pt will keep a symptom diary FU with me in 3 weeks with labs. Obesity 05/28/2016 Assessment & Plan (01/21/2023 12:32 PM EDT): Discussed re weight reduction options including exercise, life style modifications, diet, referral to certified peer specialist. Discussed re lower calorie intake, increase dietary fiber Order labs and FU with me in 3 weeks. Encounters Date Type Department Care Team Description 07/31/2024 1:15 PM EST Office Visit [facility] [address] [place] [id number] Norm, Erica, OD Myopia, bilateral (Primary Dx) from Last 3 Months Immunizations Name Administration Dates Next Due DTaP 11/09/1994, 3,1992,1991 HPV, Quadrivalent 04/17/2008,06/23/2007,04/21/20 07 Hep B, Adolescent or Pediatric 1992,1991,1992 Hep B, adult 01/26/2024,12/25/2015 Hib (HbOC) 1992,1992,1992 IPV 03/27/1996, 3,1992,1991 MMR 11/28/1996,11/10/1994 TD (adult), 2 Lf tetanus tox oid, preservative free, adsorbed 02/18/2004 Tdap 12/25/2015 Family History Medical History Relation Name Comments Diabetes Mother Hypertension Mother Asthma Sister Relation Name Status Comments Mother Sister Social History Tobacco Use Types Packs/Day Years Used Date Smoking Tobacco: Never Smokeless Tobacco: Never Tobacco Cessation:Counseling Given: Not Answered Alcohol Use Standard Drinks/Week Comments Not Currently 0 (1 standard drink = 0.6 oz pur e alcohol) rare Depression Answer Date Recorded Patient Health Questionnaire-9 Score 14 01/22/2023 Housing Stability Answer Date Recorded What is your housing situation today? I have cristian montenegro 01/26/[address] you li ve. Do you have problems with any of the following? None of the above 01/26/2024 Food Insecurity Answer Date Recorded Within the past 12 months, y ou worried that your food would run out before you got money to buy more: Never True 01/26/2024 Within the past 12 months,th e food you bought just didn't last and you didn't have enough money to get more: Never True 04/2024 Transportation Answer Date Recorded In the past 12 months, has l ack of transportation kept you from medical appts, meetings, work or from getting things needed for daily living? No 01/26/2024 Utilities Answer Date Recorded In the past 12 months, has t he electric, gas, oil or water company threatened to shut off services in your home? No 01/26/2024 Depression Answer Date Recorded Patient Health Questionnaire-2 Score 0 01/26/2024 Internet Access Answer Date Recorded Internet Access Q1 No 03/20/2024 Internet Access Q2 I do not want or need it 08/2023 Comments No Sex and Gender Information Value Date Recorded Sex Assigned at Female 05/18/2022 10:14 AM EDT Legal Sex Female 10:14 AM EDT Gender Identity Female 05/18/2022 10:14 AM EDT Sexual Orientation Choose not to disclose 2021 10:14 AM EDT Last Filed Vital Signs Vital Sign Reading Time Taken Comments Blood Pressure 121/73 01/26/2024 10:44 AM EDT Pulse 78 01/26/2024 10:44 AM EDT Temperature 36.3 ??C (97.3 ??F) 01/26/2024 10:44 AM E DT Respiratory Rate 20 01/26/2024 10:44 AM EDT Oxygen Saturation 98% 01/21/2023 9:24 AM EDT Inhaled Oxygen Concentration - - Weight 76.9 kg (169 lb 8 oz) 01/26/2024 10:44 AM EDT Height 152.4 cm (5') 01/26/2024 10:44 AM EDT Body Mass Index 33.1 01/26/2024 10:44 AM EDT Plan of Treatment Health Maintenance Due Date Last Done Comments Alcohol/Substance Use Screening 2004 Cervical Cancer Screening 06/17/2023 HPV/Cotest 06/17/2023 Pap Smear 06/17/2023 06/17/2020 COVID-19 Vaccine ( season) 2024 Influenza Vaccine (#1) 2024 Depression Monitoring (PHQ-9) 07/28/2024 01/26/2024, 01/22/2023 Depression Screening 01/25/2025 01/26/2024, 01/23/20 23 Family Planning (PISQ) 01/25/2025 01/26/2024 SDOH Screening 01/25/2025 01/26/2024 Tobacco Screening 05/29/2025 05/29/2024 DTaP/Tdap/Td Vaccines (7 - Td or Tdap) 12/24/2025 12/25/2015, 02/18/2004, 11/09/1994, Additional history exists Lipid Panel 01/27/2028 01/26/2023 Zoster Vaccines (1 of 2) 2042 RSV Patients and Patients Aged 60 years or older (1 - 1-dose 75+ series) 2067 HIB Vaccines Aged Out 1992, 08/20, 1992 No longer eligible based on patient's age to complete this topic IPV Vaccines Completed 03/27/1996, 12/17, 1992, Additional history exists HPV Vaccines Completed 04/17/2008, 1212/2006, 04/21/2007 Hepatitis C Screening Completed 01/26/2023 HIV Screening Completed 01/26/2024, 01/26/2023 Hepatitis B Vaccines Completed 01/26/2024, 12/25/2015, 1992, Additional history exists Hepatitis A Vaccines Aged Out No long er eligible based on patient's age to complete this topic Meningococcal Vaccine Aged Out No joanne henry eligible based on patient's age to complete this topic Pneumococcal Vaccine: Pediatrics (0 to 5 Years) and At-Risk Patients (6 to 49) Years) Aged Out No longer eligible based on patient's age to complete this topic RSV under 20 months Aged Out No longe r eligible based on patient's age to complete this topic Rotavirus Vaccines Aged Out No longer eligible based on patient's age to complete this topic Procedures Procedure Name Priority Date/Time Associated Diagnosis Comments HIV 1/2 ANTIGEN/ANTIBODY, FOURTH GENERATION W/RFL Routine 01/26/2024 11:26 AM EDT Risk for sexually transmitted disease HEPATITIS PANEL, GENERAL Routine 01/26/2023 10:54 AM EDT Bacterial vaginitis LIPID PANEL WITH REFLEX TO DIRECT LDL Routine 01/26/2023 10:54 AM EDT PAP SMEAR Routine 06/17/2020 from Last 3 Months or Most Recently Relevant to Health Maintenance Results * HIV-1/2 Antigen and Antibodies, Fourth Generation, with Reflexes (01/26/2024 11:26 AM EDT) HIV AB/AG Nonreactive Nonreactive [facility] Comment:HIV-1 p24 Ag and/or HIV-1/HIV-2 Ab not detected.A test result that is nonreactive does not exclude thepossibility of exposure to or infection with HIV-1 and/orHIV-2. Nonreactive results in this assay for individualswith prior exposure to HIV-1 and/or HIV-2 may be due toantigen and antibody levels that are below the limit ofdetection of this assay.[employer] HIV Ag/Ab Combo assay result andsupplemental assay results should be interpreted inconjunction with the patient's clinical presentation,history and other laboratory results. If the results areinconsistent with clinical evidence, additional testing issuggested to confirm the result. Blood Venous blood specimen / Unknown 01/26/2024 11:26 AM EDT 01/26/2024 12:59 PM EDT us Courtney Case MD LAB BLOOD ORDERABLES Fin al Result [facility] [address] [place] [address] [phone] * Lipid Panel with Reflex to Direct LDL (01/26/2023 10:54 AM EDT) Triglycerides 80 mg/dL [facility] Comment:Desirable Triglyceri de: less than 150 mg/dLBorderline High Triglyceride 150-199 mg/dLHigh Triglyceride: 200-499 mg/dLVery High Triglyceride: greater than or equal to 5OO mg/dL Cholesterol 202 mg/dL [facility] Comment:Desirable Cholestero l: less than 200 mg/dLBorderline High Cholesterol: 200-239 mg/dLHigh Cholesterol: greater than 239 mg/dL LDL Cholesterol Calculated 140 mg/dl [facility] Comment:Desirable LDL: less than 100 mg/dLNear Optimal/Above Optimal LDL: 110- 129 mg/dLBorderline High LDL: 130-159 mg/dLHigh LDL: 160-189 mg/dLVery High LDL: greater than or equal to 190 mg/dL HDL Cholesterol 46 mg/dL [facility] Comment:Desirable HDL: great er than 40 mg/dL Note: This HDL assay may give artificially low results in patients with liver disease. 01/26/2023 10:5 4 AM EDT 01/26/2023 12:59 PM EDT [facility] External Provider LAB BLO OD ORDERABLES Final Result [facility] [address] [place] [address] [phone] * Hepatitis Panel, General (01/26/2023 10:54 AM EDT) Hepatitis A IgM Nonreactive Nonreactive [facility] Comment:IgM antibodies to ORDOÑEZ V not detected; does not exclude earlyacute or recovered HAV infection. ~Hepatitis B Surface Antibody NONREACTIVE Nonreactive [facility] Comment:Nonreactive: < 8.00 mIU/mL Hepatitis B Core Antibody Nonreactive Nonreactive [facility] Hepatitis C Antibody Nonreactive Nonreactive [facility] Comment:Antibodies to HCV no t detected; does not exclude early acuteHCV infection. Hepatitis B Surface Ag Negative Negative [facility] 01/26/2023 10:5 4 AM EDT 01/26/2023 12:59 PM EDT [facility] External Provider LAB BLO OD ORDERABLES Final Result Performing Organization Address [facility] Co de Phone Number [facility] [address] [place] [address] [phone] * Pap Smear (06/17/2020) Pap Negative for intraephithelial lesion or malignancy Negative for intraephithelial lesion or malignancy, Other [facility] Swab 06/17/2020 Juhi Blank LAB CYTOLOGY ORDERABLES Final Re sult Performing Organization Address [facility] Co de Phone Number [facility] [address] [place] [address] [phone] from Last 3 Months or Most Recently Relevant to Health Maintenance Insurance [facility] C3 Care Teams Wool Buyer Relationship Specialty Start Date End Date Courtney Case MD [address] [place] [id number] PCP - General Family Medicine 04/18/19
== END 2024-09-27 11:04 | disposition home or self-care (01) ==
LOC: HO.HWSM 10:00
PROVIDERS: PCP Internal Medicine; Visit Provider Advanced Practice Midwife
DX: Z01.419 Encounter for gynecological examination (general) (routine) without abnormal findings (principal)
CPT/HCPCS: 99385; 99459

== ENCOUNTER 2024-09-27 09:59 | Outpatient (REF) | payer MEDICAID, SELFPAY ==
--- OUTSIDE RECORDS SUMMARY | 2024-09-27 16:34 | XMS_ITS | Clinical Summary ---
Author Organization [employer] Address [address] [place] [address] Care Team Providers Care Scrum Master Name Role Phone Courtney Case MD Primary [...] exercise, life style modifications, diet, referral to poison information specialist. Discussed re lower calorie intake, increase dietary fiber Dietary counseling 01/21/2023 Assessment & Plan (01/21/2023 10:13 AM EDT): Discussed re weight reduction options including exercise, life style modifications, diet, referral to poison information specialist. Discussed re lower calorie intake, increase [...] pap smear this year, she will call [facility] director of leadership development to schedule or will f/u next year [...] feels safe at home. PAP smear Obtain MANAGER LONG TERM CARE note from [facility] and fu next visit Eye exam up [...] of change PLAN: 1. Follow up with [facility]: Not recommended for follow-up 2. Patient goal [...] exercise, life style modifications, diet, referral to poison information specialist. Discussed re lower calorie intake, increase dietary fiber Order labs and FU with me in 3 weeks. Encounters Date Type Department Care Team Description 07/31/2024 1:15 PM EST Office Visit [facility] [address] [place] [phone] Norm, Erica, OD Myopia, bilateral (Primary Dx) [...] 11:26 AM EDT) HIV AB/AG Nonreactive Nonreactive [facility] Comment:HIV-1 p24 Ag and/or HIV-1/HIV-2 Ab not detected.A test result that is nonreactive does not exclude thepossibility of exposure to or infection with HIV-1 and/orHIV-2. Nonreactive results in this assay for individualswith prior exposure to HIV-1 and/or HIV-2 may be due toantigen and antibody levels that are below the limit ofdetection of this assay.The [employer] HIV Ag/Ab Combo assay result andsupplemental assay results should be interpreted inconjunction with the patient's clinical presentation,history and other laboratory results. If the results areinconsistent with clinical evidence, additional testing issuggested to confirm the result. Blood Venous blood specimen / Unknown 01/26/2024 11:26 AM EDT 01/26/2024 12:59 PM EDT us Courtney Case MD LAB BLOOD ORDERABLES Fin al Result [facility] [address] [place] [phone] * Lipid Panel with Reflex to Direct LDL (01/26/2023 10:54 AM EDT) Triglycerides 80 mg/dL [facility] Comment:Desirable Triglyceri de: less than 150 mg/dLBorderline High Triglyceride 150-199 mg/dLHigh Triglyceride: 200-499 mg/dLVery High Triglyceride: greater than or equal to 5OO mg/dL Cholesterol 202 mg/dL [facility] Comment:Desirable Cholestero l: less than 200 mg/dLBorderline High Cholesterol: 200-239 mg/dLHigh Cholesterol: greater than 239 mg/dL LDL Cholesterol Calculated 140 mg/dl [facility] Comment:Desirable LDL: less than 100 mg/dLNear Optimal/Above Optimal LDL: 110- 129 mg/dLBorderline High LDL: 130-159 mg/dLHigh LDL: 160-189 mg/dLVery High LDL: greater than or equal to 190 mg/dL HDL Cholesterol 46 mg/dL [facility] Comment:Desirable HDL: great er than 40 mg/dL Note: This HDL assay may give artificially low results in patients with liver disease. 01/26/2023 10:5 4 AM EDT 01/26/2023 12:59 PM EDT [facility] External Provider LAB BLO OD ORDERABLES Final Result [facility] [address] [place] [phone] * Hepatitis Panel, General (01/26/2023 10:54 AM EDT) Hepatitis A IgM Nonreactive Nonreactive [facility] Comment:IgM antibodies to ORDOÑEZ V not detected; does not exclude earlyacute or recovered HAV infection. ~Hepatitis B Surface Antibody NONREACTIVE Nonreactive [facility] Comment:Nonreactive: < 8.00 mIU/mL Hepatitis B Core Antibody Nonreactive Nonreactive [facility] Hepatitis C Antibody Nonreactive Nonreactive [facility] Comment:Antibodies to HCV no t detected; does not exclude early acuteHCV infection. Hepatitis B Surface Ag Negative Negative [facility] 01/26/2023 10:5 4 AM EDT 01/26/2023 12:59 PM EDT [facility] External Provider LAB BLO OD ORDERABLES Final Result Performing Organization Address [facility] Co de Phone Number [facility] [address] [place] [address] [phone] * Pap Smear (06/17/2020) Pap Negative for intraephithelial lesion or malignancy Negative for intraephithelial lesion or malignancy, Other [facility] Swab 06/17/2020 Juhi Blank LAB CYTOLOGY ORDERABLES Final Re sult Performing Organization Address [facility] Co de Phone Number [facility] [address] [place] [phone] from Last 3 Months or Most Recently Relevant to Health Maintenance Insurance [facility] C3 Care Teams Scrum Master Relationship Specialty Start Date End Date Courtney Case MD [address] [place] [phone] PCP - General Family Medicine 04/18/19
[2024-09-28 05:40] LABS: CT PCR DETECTED (Not Detect.); NG PCR NOT DETECTED (Not Detect.)
[2024-09-28 09:09] LABS: Bacterial Vaginosis PCR POSITIVE (Negative); Candida Group PCR NOT DETECTED (Not Detect); Candida glab krusei PCR NOT DETECTED (Not Detect); Trichomonas vaginalis PCR NOT DETECTED (Not Detect)
== END 2024-09-27 10:00 | disposition home or self-care (01) ==
LOC: HO.LAB 09:59
PROVIDERS: PCP Internal Medicine; Visit Provider Advanced Practice Midwife
DX: Z01.419 Encounter for gynecological examination (general) (routine) without abnormal findings (principal); N89.8 Other specified noninflammatory disorders of vagina; Z20.2 Contact with and (suspected) exposure to infections with a predominantly sexual mode of transmission; Z97.5 Presence of (intrauterine) contraceptive device
CPT/HCPCS: 81515; 87491; 87591; 99385; 99459

== ENCOUNTER 2024-09-27 13:55 | Outpatient (REF) | payer MEDICAID, SELFPAY ==
[2024-10-02 14:06] LABS: HPV Genotype 16 Negative (Negative); HPV Genotype 18 Negative (Negative); HPV High Risk Positive (Negative)
== END 2024-09-27 13:56 | disposition home or self-care (01) ==
LOC: HO.LNP 13:55
PROVIDERS: Visit Provider Advanced Practice Midwife
DX: Z00.00 Encounter for general adult medical examination without abnormal findings (principal); N89.8 Other specified noninflammatory disorders of vagina
CPT/HCPCS: 87626; 88175

== ENCOUNTER 2024-09-29 10:18 | Emergency (ER) | payer MEDICAID, SELFPAY ==
--- NOTE | ~2024-09-29 | XR_ITS ---
EXAMINATION: XR FOOT, RIGHT CLINICAL INFORMATION: pain; no further clinical information provided. COMPARISON: None available. TECHNIQUE: AP, lateral, and oblique views of the right foot. FINDINGS: No fracture, dislocation, or suspicious bone lesion. Normal bone mineralization. Normal alignment. Joint spaces are preserved. No significant arthropathy. Normal plantar arch. Tiny dorsal calcaneal spur. Soft tissues appear normal. XR/XR foot RT min 3V IMPRESSION: No acute bony or soft tissue abnormalities. Electronically signed by: Alok Lira MD 09/29/2024 10:51 AM EDT
[2024-09-29 10:33] VITALS: BP 130/74; PULSE 94; RESP 18; TEMP 36.8; O2SAT 98; BMI 33.1
--- NOTE | 2024-09-29 10:38 | ED.EXTPRO ---
HPI - Extremity Problem General Chief complaint: General Medical Stated complaint: R foot pain Time Seen by Provider: 09/29/24 10:33 Source: patient Mode of arrival: ambulatory Limitations: no limitations History of Present Illness ED Provider: KORI COLBERT Narrative: 34 yo female no sig PMH here with c/o R foot pain atraumatic in nature worse first thing in AM has no rash, fevers, known trauma. Hurts to walk on it. She is on her foot a lot at work. She notes it is very painful to stretch the foot out. She has never had this before. MD Complaint: other (foot pain) Onset (ago): day(s) (several) Pain Consistency: intermittent Location: right and other (foot) Quality: aching Radiation: none Relieving factors: rest Exacerbating factors: walking and palpation Associated symptoms: denies other symptoms Context: other Related Data Home Medications ?Medication ?Instructions ?Recorded ?Confirmed levonorgestrel 21 mcg/24 hr (up to intrauterine 07/09/20 09/27/24 8 years) 52 mg intrauterine device (Mirena) Previous Rx's ?Medication ?Instructions ?Recorded doxycycline hyclate 100 mg tablet 100 mg PO BID #14 tabs 09/28/24 metronidazole 500 mg tablet 500 mg PO Q12H #14 tabs 09/28/24 cyclobenzaprine 10 mg tablet 10 mg PO TID PRN muscle spasm #20 09/29/24 tabs ibuprofen 600 mg tablet 600 mg PO Q6H PRN pain #30 tabs 09/29/24 Allergies Allergy/AdvReac Type Severity Reaction Status Date / Time No Known Allergies Allergy Verified 09/29/24 10:34 Review of Systems Review of Systems: Constitutional : No Fever, No Chills ENT/Mouth : No Ear Pain, No Hoarseness, No sore throat Eyes: No Eye Pain, No Swelling, No Redness, No Foreign Body Cardiovascular : No Chest Pain, No SOB Respiratory : No Cough, No Dyspnea Gastrointestinal : No Nausea, No Vomiting, No Diarrhea, No abdominal Pain Genitourinary : No Dysuria, No Hematuria Musculoskeletal : positive joint pain, No Myalgias, No Joint Swelling Skin : No Skin lacerations, No rash Neuro : No Weakness, No Numbness, No Loss of Consciousness, No Dizziness, No Headache All other systems reviewed and are negative [facility] Past Medical History Attestation statement: The following information was validated with the patient. Source: old records reviewed Medical History Chondromalacia patellae of right knee Family History Family History Mother HTN (hypertension) Social History Social History Alcohol intake: never Patient Tobacco Use Status: Never used Tobacco Gender identity: Female Physical Exam Vital Signs: Vital Signs: Last Vital Signs Temp 98.3 F 09/29/24 10:33 Pulse 94 09/29/24 10:33 Resp 18 09/29/24 10:33 BP 130/74 09/29/24 10:33 Pulse Ox 98 09/29/24 10:33 O2 Del Method Room Air 09/29/24 10:33 BMI result Body Mass Index 33.1 Appearance: Alert. Oriented X3. No acute distress. Eyes: Pupils equal, round and reactive to light. ENT: Pharynx normal. Neck: Normal inspection. CVS: Pulses normal. Respiratory: No respiratory distress. Abdomen: atraumatic Skin: Skin warm and dry. Normal skin color. Normal skin turgor. Extremities: No lower extremity edema. R foot along plantar insertion site she has ttp but no rash, no swelling, NV intact SILT intact, hurts to stretch the plantar fascia Neuro: Oriented X 3. No motor deficit. No sensory deficit. CN2-12 intact Medical Decision Making Medical Decision Making MDM Narrative: 34 yo female with no sig PMH here with atraumatic R foot pain she is NV intact, no signs of infection, based off her history and physical exam I suspect she has plantar fasciitis - I am going to obtain xray for occult injury but discussed and showed her outpatient therapies such as splint, orthotics, and foot roller. She is also going to be started on anti-inflammatories. She can follow up with provider. Differential Diagnosis Differential Diagnoses: The differential diagnosis associated with the presentation includes strain, sprain, plantar fasciitis Independent Interpretation I performed an independent interpretation of an: Plain X-Ray (normal ) Radiology Impression Discussion of test interpretation with radiology: I have reviewed the radiologist's reading. External Record Review External record reviewed: Outpatient record Prescription Management I considered prescription management with: Pain Medication and Other Discharge Plan Discharge Clinical Impression: Plantar fasciitis of right foot Patient Disposition: Home, Self-Care Instructions: Plantar Fasciitis (ED), Plantar Fasciitis Exercises (ED) Additional Instructions: as discussed use the foot massaging device and there is an orthotic you can buy to help stretch it out at night shoe inserts and supportive shoes will help follow up with your doctor return for any worsening symptoms or concerns. COMPARISON: None available. TECHNIQUE: AP, lateral, and oblique views of the right foot. FINDINGS: No fracture, dislocation, or suspicious bone lesion. Normal bone mineralization. Normal alignment. Joint spaces are preserved. No significant arthropathy. Normal plantar arch. Tiny dorsal calcaneal spur. Soft tissues appear normal. XR/XR foot RT min 3V IMPRESSION: No acute bony or soft tissue abnormalities. Prescriptions: New cyclobenzaprine 10 mg tablet 10 mg PO TID PRN (Reason: muscle spasm) Qty: 20 0RF ibuprofen 600 mg tablet 600 mg PO Q6H PRN (Reason: pain) Qty: 30 0RF No Action doxycycline hyclate 100 mg tablet 100 mg PO BID Qty: 14 0RF metronidazole 500 mg tablet 500 mg PO Q12H Qty: 14 0RF Mirena 20 mcg/24 hours (6 yrs) 52 mg intrauterine device intrauterine Stand Alone Forms: Work/School Release Print Language: Maltese
[2024-09-29 11:13] VITALS: BP 130/74; PULSE 94; RESP 18; TEMP 36.8; O2SAT 98
== END 2024-09-29 11:13 | disposition home or self-care (01) ==
LOC: HO.ED 11:03
PROVIDERS: Emergency Provider Emergency Medicine
DX: M72.2 Plantar fascial fibromatosis (principal); M79.671 Pain in right foot
CPT/HCPCS: 73630; 99282; 99283

== ENCOUNTER → 2024-09-29 10:34 | Outpatient (BNV) | payer MEDICAID, SELFPAY | PROVIDERS: Emergency Provider Emergency Medicine; Visit Provider Radiology Diagnostic Radiology | DX: M79.671 Pain in right foot (principal) | CPT/HCPCS: 73630 ==

== ENCOUNTER 2024-10-20 15:04 | Outpatient (REF) | payer MEDICAID, SELFPAY | END 2024-10-20 15:05 | disposition home or self-care (01) | LOC: HO.LNP 15:04 | PROVIDERS: Visit Provider Obstetrics & Gynecology | DX: R87.610 Atypical squamous cells of undetermined significance on cytologic smear of cervix (ASC-US) (principal); R87.810 Cervical high risk human papillomavirus (HPV) DNA test positive | CPT/HCPCS: 57454; 88305; 88341; 88342 ==

== ENCOUNTER 2024-10-20 15:04 | Outpatient (AMB) | payer MEDICAID, SELFPAY ==
--- NOTE | 2024-10-20 15:11 | MHC.OFFVIS ---
Intake Visit Reasons: Colposcopy Consumer Marketing Specialist: Consumer Marketing Specialist Present (Francesca) Accompanied by: Self / Same As Patient Allergies No Known Allergies Allergy (Verified 10/20/24 15:11) HPI Comments Details: Presenting for abnormal Pap smear showing ascus/HPV high-risk positive, HPV 16/18 negative [facility] Medical History Chondromalacia patellae of right knee Family History Mother HTN (hypertension) Social History Alcohol intake: never Patient Tobacco Use Status: Never used Tobacco Gender identity: Female Female Reproductive History Menstrual Age of Menarche: 11 Review of Systems Const All systems reviewed & are unremarkable except as noted in HPI and below Reports as per HPI and Reports no additional complaints GI Reports no additional complaints Reports no additional complaints Office Procedures Colposcopy Colposcopy: Pre-Procedure Counseling: Before beginning the procedure, I conducted comprehensive counseling with the patient. We thoroughly discussed the procedure itself, including its details, alternatives, and all associated risks. This included but not limited to the following complications such as bleeding, infection, and injury to the vagina, bladder, and vessels, as well as the potential need for transfusion with all its associated risks. Subsequently, the patient sign the consent. Urine test done in the office was negative Pap smear result: Ascus/HPV high-risk positive, HPV 16/18 negative Procedure: During the procedure, the following steps were performed: A speculum was inserted, and acetic acid was applied. Colposcopy was conducted, allowing visualization of the transformation zone. Acetowhite lesions were identified at the 11+ 12+ 1+4 +6 o'clock position. Cervical biopsies were obtained from the 11+ 12+ 1+4 +6 o'clock position, followed by an endocervical curettage (ECC). Vaginoscopy of the upper vagina revealed no evidence of aceto-white lesions. Hemostasis was achieved using Monsel solution, and the patient tolerated the procedure well. Post-Procedure Instructions: The patient was advised to promptly contact the office or the after hours answering service or go to the emergency room if experiencing a temperature exceeding 100.4?F, abdominal pain, nausea/vomiting, or bleeding. Additionally, the patient was instructed to abstain from vaginal intercourse and bathtub use. The patient confirmed understanding of these instructions. Discharge Instructions: The patient was instructed to schedule a follow-up appointment in 2 weeks for further evaluation and management. Please note that this note was generated using a voice recognition program, and errors may have occurred during project controls scheduler. [id number] of cervix including upper vagina with biopsy and ECC Procedure code (CPT) selection complete Assessment & Plan Assessment & Plan (1) ASCUS with positive high risk HPV cervical: Code(s): R87.610 - Atypical squamous cells of undetermined significance on cytologic smear of cervix (ASC-US); R87.810 - Cervical high risk human papillomavirus (HPV) DNA test positive Category: Medical Plan: Discussed with the patient the result of her abnormal pap, its significance, risk of progression, persistence, and regression. the false positive/negative rate of a Pap smear as a screening test in detecting cervical cancer and the indication for a diagnostic test -colposcopy, biopsy, endocervical curettage. The patient verbalized understanding and agreed with the plan, all questions answered. Colpo biopsy ECC done, see procedure note Orders: Orders AMB Colposcopy Today R87.610 - Atypical squamous cells of undetermined significance on cytologic smear of cervix (ASC-US), R87.810 - Cervical high risk human papillomavirus (HPV) DNA test positive Coding Level of Care Code Procedure Only Diagnoses ASCUS with positive high risk HPV cervical R87.610; R87.810 CPT Codes Colposcopy - CPT: 19938-Favxtxpqp of cervix including upper vagina with biopsy and ECC ([id number])
--- OUTSIDE RECORDS SUMMARY | 2024-10-20 16:27 | XMS_ITS | Clinical Summary ---
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 Discussed re lower calorie intake, increase dietary fiber Dietary counseling 01/21/2023 Assessment & Plan (01/21/2023 10:13 AM EDT): Discussed re weight reduction options including exercise, life style modifications, diet, referral to cannon fire direction specialist. 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 PAP smear Obtain APPLICATION SUPPORT LEAD note from [facility] and fu next visit Eye exam up [...] of change PLAN: 1. Follow up with [facility]: Not recommended for follow-up 2. Patient goal [...] exercise, life style modifications, diet, referral to cannon fire direction specialist. Discussed re lower calorie intake, increase dietary fiber Order labs and FU with me in 3 weeks. Encounters Date Type Department Care Team Description 09/29/2024 Population Health Risk Score [facility] (C3) Department [address] [phone] Provider, Population Health Generic 09/29/2024 Telephone [facility] [address] [place] [address] Colleen Sharma RN Results 09/27/2024 Orders Only GENERIC EXTERNAL DATA DEPARTMENT Provider, Generic External Data 07/31/2024 1:15 PM EST Office Visit [facility] [address] [place] [address] Norm, Erica, OD Myopia, bilateral (Primary Dx) [...] your housing situation today? I have cristian moni 01/26/[address] you li [...] Last Done Comments Alcohol/Substance Use Screening 2004 COVID-19 Vaccine ( season) 2024 Influenza Vaccine (#1) 2024 Depression Monitoring (PHQ-9) 07/28/2024 01/26/2024, 01/22/2023 Colposcopy 09/28/2024 Depression Screening 01/25/2025 01/26/2024, 01/23/20 23 Family Planning (PISQ) 01/25/2025 01/26/2024 SDOH Screening 01/25/2025 01/26/2024 Tobacco Screening 05/29/2025 05/29/2024 DTaP/Tdap/Td Vaccines (7 - Td or Tdap) 12/24/2025 12/25/2015, 02/18/2004, 11/09/1994, Additional history exists Cervical Cancer Screening 09/28/2027 HPV/Cotest 09/28/2027 09/27/2024 Pap Smear 09/28/2027 09/27/2024, 06/17/2020 Lipid Panel 01/27/2028 01/26/2023 Zoster Vaccines (1 of 2) 2042 RSV Patients and Patients Aged 60 years or older (1 - 1-dose 75+ series) 2067 HIB Vaccines Aged Out 1992, 08/20, 1990 No longer eligible based on patient's age to complete this topic IPV Vaccines Completed 03/27/1996, 12/17, 1992, Additional history exists HPV Vaccines Completed 04/17/2008, 12/2006, 04/21/2007 Hepatitis C Screening Completed 01/26/2023 HIV [...] Procedure Name Priority Date/Time Associated Diagnosis Comments PAP SMEAR Routine 09/27/2024 9:50 AM EDT HPV DNA, LOW/HIGH RISK Routine 09/27/2024 9:50 AM EDT BACTERIAL VAGINOSIS PANEL Routine 09/27/2024 9:50 AM EDT CHLAMYDIA/N. GONORRHOEAE RNA, TMA, UROGENITAL Routine 09/27/2024 9:50 AM EDT HIV 1/2 ANTIGEN/ANTIBODY, FOURTH GENERATION W/RFL Routine 01/26/2024 11:26 AM EDT Risk for sexually transmitted disease HEPATITIS PANEL, GENERAL Routine 01/26/2023 10:54 AM EDT Bacterial vaginitis LIPID PANEL WITH REFLEX TO DIRECT LDL Routine 01/26/2023 10:54 AM EDT from Last 3 Months or Most Recently Relevant to Health Maintenance Results * (ABNORMAL) Bacterial Vaginosis (09/27/2024 9:50 AM EDT) TRICHOMONAS VAGINALIS DETECTION BY PCR NOT DETECTED Not Detect [facility] BACTERIAL VAGINOSIS DETECTION BY PCR POSITIVE(A) Negative [facility] Comment:The BV organism targ ets of the Xpert Xpress MVP test can becommensal in women; Xpert Xpress MVP positive results forbacterial vaginosis should be considered in conjunction withother clinical and patient information to determine thedisease status. Organisms that are not detected by the XpertXpress MVP test have also been reported to be associatedwith BV and aerobic vaginitis.The Xpert Xpress MVP test performance has not been evaluatedin patients under the age of 14. [employer] DETECTION BY PCR NOT DETECTED Not Detect [facility] Luzmaria glab krusei PCR NOT DETECTED Not Detect [facility] 09/27/2024 9:50 AM EDT 09/27/2024 5:02 PM EDT us Generic External Data Provider LAB MICROBIOLOGY - GENERAL ORDERABLES Final Result [facility] [address] [place] [phone] * (ABNORMAL) HPV DNA, Low/High Risk (09/27/2024 9:50 AM EDT) HPV High Risk Positive(A) Negative [facility] HPV Genotype 16 Negative Negative [facility] HPV Genotype 18 Negative Negative [facility] Comment:HPV testing performe d at [facility] (CLIA#[id number]), [address] [place] [address].Testing for HPV was performed using the Ever NICOLE 6800system. The presence of HPV in the female genital tract isassociated with a number of diseases, including cervicalcarcinoma. The HPV DNA high risk pool tests for HPV 31, 33,35, 39, 45, 51, 52, 56, 58, 59, 66 and 68. The testing forHPV 16 and 18 genotypes has also been performed. A positiveresult indicates detection of nucleic acid sequences fromone or more subtypes, whereas a negative result indicatessuch sequences were not detected. 09/27/2024 9:50 AM EDT 09/28/2024 6:32 AM EDT us Generic External Data Provider LAB BLOOD ORDERAB LES Final Result [facility] [address] [place] [phone] * (ABNORMAL) Chlamydia/N. Gonorrhoeae RNA, TMA, Urogenitial (09/27/2024 9:50 AM EDT) CT PCR DETECTED(A) Not Detect. [facility] Comment:Detected results may be observed after successful antibiotictreatment due to target nucleic acids from residualnon-viable chlamydia. As with many diagnostic tests, resultsfrom the Xpert CT/NG assay should be interpreted inconjunction with other laboratory and clinical dataavailable to the clinician.Xpert CT/NG performance has not been evaluated in patientsless than 14 years of age. The assay should not be used forthe evaluationof suspected sexual abuse or for other medico- legalindications. Additional testing is recommended inany circumstance when false positive or false negativeresults could lead to adverse medical, social orpsychological consequences.These results must be reported by the ordering clinician orclinical facility to the [facility]as required by state law. NG PCR NOT DETECTED Not Detect. [facility] Comment:A not detected test result does not exclude the possibilityof infection because test results can be affected byimproper specimen collection, concurrent antibiotic therapy,or the number of organisms in the specimen which may bebelow the sensitivity of the test. As with many diagnostictests, results from the Xpert CT/NG assay should beinterpreted in conjunction with other laboratory andclinical data available to the clinician.Xpert CT/NG performance has not been evaluated in patientsless than 14 years of age. The assay should not be used forthe evaluationof suspected sexual abuse or for other medico-legalindications. Additional testing is recommended in anycircumstance when false positive or false negative resultscould lead to adverse medical, social or psychologicalconsequences. 09/27/2024 9:50 AM EDT 09/27/2024 5:02 PM EDT Narrative [facility] - 09/28/2024 5:40 AM EDT Vaginal us Generic External Data Provider LAB MICROBIOLOGY - GENERAL ORDERABLES Final Result [facility] [address] [place] [phone] * Pap Smear (09/27/2024 9:50 AM EDT) 09/27/2024 9:50 AM EDT 09/28/2024 6:10 AM EDT [facility] - 10/03/2024 9:32 AM EDT ----- ------- Name: Gita Puryd ? Age/Sex: 34/F ? : 1990 Unit#: [id number] ?? Attend Dr: Juhi Blank CNM ?Re09/27/24 ?Status: DEP REF ? Location: HO.LNP ?Disch: ? ----- ------- SPEC : [id number] ? RECD: 09/28/24 ? STATUS: ??SOUT ? REQ NUM: [id number] ? SOCORRO: 09/27/24 ? SUBM DR: Juhi Blank CNM ? ENTERED: ??09/28/24 ?SP TYPE: Pap Smr ?OTHR DR: ? ORDERED: ??Pap Smear, PAP path review ? Interpretation ?? ABNORMAL PAP TEST. ?? Satisfactory for evaluation, with atypical squamous cells of undetermined significance ?? (ASC-US), rare. ?? Moderate inflammation. ?? Coccobacilli consistent with shift in vaginal ximena. ? HPV High Risk: ??Positive ? HPV Genotyping 16: ??Negative ?? HPV Genotyping 18: ??Negative ?Clinical Information LMP: No menses, IUD Previous PAP test: 2019, negative Other surgery: Other history: ? Material Received ?? ThinPrep-Cervical ----- ------- Signed (signature on file) Jayne Rhodes MD 10/03/24 0932 ? ----- ------- ? END OF REPORT ? us Generic External Data Provider LAB CYTOLOGY ORDE IAN Final Result Performing Organization Address [facility] Co de Phone Number [facility] [address] [place] [phone] * HIV-1/2 Antigen and Antibodies, Fourth Generation, with Reflexes (01/26/2024 11:26 AM EDT) [facility] HIV AB/AG Nonreactive Nonreactive [facility] Comment:HIV-1 p24 Ag and/or HIV-1/HIV-2 Ab not detected.A test result that is nonreactive does not exclude thepossibility of exposure to or infection with HIV-1 and/orHIV-2. Nonreactive results in this assay for individualswith prior exposure to HIV-1 and/or HIV-2 may be due toantigen and antibody levels that are below the limit ofdetection of this assay.The [employer] HIV Ag/Ab Combo assay result andsupplemental assay results should be interpreted inconjunction with the patient's clinical presentation,history and other laboratory results. If the results areinconsistent with clinical evidence, additional testing issuggested to confirm the result. Blood Venous blood specimen / Unknown 01/26/2024 11:26 AM EDT 01/26/2024 12:59 PM EDT us Courtney Case MD LAB BLOOD ORDERABLES Fin al Result Performing Organization Address [facility]/ZIP Co de Phone Number [facility] [address] [place] [phone] * Lipid Panel with Reflex to Direct LDL (01/26/2023 10:54 AM EDT) Triglycerides 80 mg/dL [facility] Comment:Desirable Triglyceri de: less than 150 mg/dLBorderline High Triglyceride 150-199 mg/dLHigh Triglyceride: 200-499 mg/dLVery High Triglyceride: greater than or equal to 5OO mg/dL Cholesterol 202 mg/dL [facility] Comment:Desirable Cholestero l: less than 200 mg/dLBorderline High Cholesterol: 200-239 mg/dLHigh Cholesterol: greater than 239 mg/dL LDL Cholesterol Calculated 140 mg/dl [facility] Comment:Desirable LDL: less than 100 mg/dLNear Optimal/Above Optimal LDL: 110- 129 mg/dLBorderline High LDL: 130-159 mg/dLHigh LDL: 160-189 mg/dLVery High LDL: greater than or equal to 190 mg/dL HDL Cholesterol 46 mg/dL [facility] Comment:Desirable HDL: great er than 40 mg/dL Note: This HDL assay may give artificially low results in patients with liver disease. 01/26/2023 10:5 4 AM EDT 01/26/2023 12:59 PM EDT [facility] External Provider LAB BLO OD ORDERABLES Final Result Performing Organization Address [facility] Co de Phone Number [facility] [address] [place] [phone] * Hepatitis Panel, General (01/26/2023 10:54 AM EDT) Hepatitis A IgM Nonreactive Nonreactive [facility] Comment:IgM antibodies to ORDOÑEZ V not detected; does not exclude earlyacute or recovered HAV infection. ~Hepatitis B Surface Antibody NONREACTIVE Nonreactive [facility] Comment:Nonreactive: < 8.00 mIU/mL Hepatitis B Core Antibody Nonreactive Nonreactive [facility] Hepatitis C Antibody Nonreactive Nonreactive [facility] Comment:Antibodies to HCV no t detected; does not exclude early acuteHCV infection. Hepatitis B Surface Ag Negative Negative [facility] 01/26/2023 10:5 4 AM EDT 01/26/2023 12:59 PM EDT us [facility] [employer] External Provider LAB BLO OD ORDERABLES Final Result [facility] [address] [place] [phone] from Last 3 Months or Most Recently Relevant to Health Maintenance [facility] Fish Worm Grower Relationship Specialty Start Date End Date Courtney Case MD [address] [place] [phone] PCP - General Family Medicine 04/18/19
== END 2024-10-20 15:31 | disposition home or self-care (01) ==
LOC: HO.HWS 15:05
PROVIDERS: Visit Provider Obstetrics & Gynecology
DX: R87.610 Atypical squamous cells of undetermined significance on cytologic smear of cervix (ASC-US) (principal); R87.810 Cervical high risk human papillomavirus (HPV) DNA test positive
CPT/HCPCS: 57454

== ENCOUNTER 2024-10-27 14:36 | Outpatient (REF) | payer MEDICAID, SELFPAY ==
[2024-10-27 17:43] LABS: Bacterial Vaginosis PCR NEGATIVE (Negative); Candida Group PCR NOT DETECTED (Not Detect); Candida glab krusei PCR NOT DETECTED (Not Detect); Trichomonas vaginalis PCR NOT DETECTED (Not Detect)
[2024-10-27 18:05] LABS: CT PCR NOT DETECTED (Not Detect.); NG PCR NOT DETECTED (Not Detect.)
== END 2024-10-27 14:37 | disposition home or self-care (01) ==
LOC: HO.LNP 14:36
PROVIDERS: PCP Internal Medicine; Visit Provider Advanced Practice Midwife
DX: Z97.5 Presence of (intrauterine) contraceptive device (principal); Z20.2 Contact with and (suspected) exposure to infections with a predominantly sexual mode of transmission
CPT/HCPCS: 81515; 87491; 87591; 99212

== ENCOUNTER 2024-10-27 14:36 | Outpatient (AMB) | payer MEDICAID, SELFPAY ==
--- NOTE | 2024-10-27 14:39 | A.OFFVIS_ITS ---
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 Anything before. She has the Mirena IUD and does not get periods she does not remember when this 1 was inserted and she just really can not remember if she had this replaced at some point or not. She did have 1 put in sometime after the of her 10-year-old child. [facility] Medical History Chondromalacia patellae of right knee Family History Mother HTN (hypertension) Social History Alcohol intake: never Patient Tobacco Use Status: Never used Tobacco Patient : No Gender identity: Female Female Reproductive History Menstrual Age of Menarche: 11 control method: progestin IUCD (Mirena) Total pregnancies: 2 Full term: 2 Date of last pap smear: 09/27/24 (positive papsmear, positive hpv ) History of abnormal pap smear: Yes Physical Exam Vital Signs: Last Vital Signs BP 130/72 10/27/24 14:49 BMI result Body Mass Index 33.0 Other: Multiparous cervix slightly irregular pink with a yellowish whitish thick discharge I am unable to see the Mirena string today. Results Reviewed Results Reviewed: Name: Gita Purdy Age/Sex: 34/F Attending: Ziyad Carpenter MD : 1990 Submitted by: Ziyad Carpenter MD Copies to: [facility] MR #: [id number] Status: DEP REF Collected: 10/20/24 Location: [facility] Received: 10/23/24 Diagnosis A. Endocervix, curettage: Inflamed cervical transformation zone mucosa with reactive changes. B. Cervix, 1 o'clock, biopsy: - Low-grade squamous intraepithelial lesion (CHRIS 1). - Background inflamed cervical transformation zone mucosa. C. Cervix, 4 o'clock, biopsy: - Endocervical mucosa within normal limits. - No squamous epithelium identified. D. Cervix, 6 o'clock, biopsy: Mildly inflamed cervical transformation zone mucosa with reactive changes. E. Cervix, 11 o'clock, biopsy: - Low-grade squamous intraepithelial lesion (HCRIS 1). - Background inflamed cervical transformation zone mucosa. F. Cervix, 12 o'clock, biopsy: Mildly inflamed cervical transformation zone mucosa with reactive changes. COMMENT: The findings are concordant with the patient's recent Pap/cytology specimen ([id number]; ASCUS with positive HR HPV) - slide reviewed. Clinical History ASCUS with positive HPV cervical Microscopic Description A-F. Microscopic sections reviewed. Immunostains for p16 and Ki-67 support the diagnoses in parts B and E. Material Received A. ECC B. Cx bx 1 o'clock C. Cx bx 4 o'clock D. Cx bx 6 o'clock E. Cx bx 11 o'clock F. Cx bx 12 o'clock Patient: Gita Purdy Age/Sex: 34/F MR#: [id number] Page 1 of 2 Surgical Pathology [id number] Gross Description Received in six parts. Part A: Received in formalin labeled ?ECC? is a 0.2 x 0.1 x 0.1 cm aggregate of jaramillo mucus, submitted in toto in a cassette labeled A. Part B: Received in formalin labeled ?cx bx 1 is a 0.3 cm in greatest dimension partially fragmented jaramillo irregular fragment of mucosa with cloudy hussein-white mucus, submitted in toto in a cassette labeled B. Part C: Received in formalin labeled cx bx 4 is a 0.15 cm rubbery, hussein-white irregular fragment of mucosa along with copious cloudy hussein-white mucus, submitted in toto in a cassette labeled C. Part D: Received in formalin labeled ?cx bx 6 is a 0.4 cm rubbery, hussein-white wedge-shaped fragment of mucosa with scant cloudy hussein-white mucus, submitted in toto in a cassette labeled D. Part E: Received in formalin labeled ?cx bx 11? is a 0.3 cm hussein-jaramillo irregular fragment of mucosa with scant cloudy hussein-white mucus, submitted in toto in a cassette labeled E. Part F: Received in formalin labeled ?cx bx 12? are 2 hussein-jaramillo irregular tissue fragments measuring 0.15 and 0.3 cm, submitted in toto in a cassette labeled F. CEDS Special studies ordered and performed: Immunostains for p16 and Ki-67 on B and E. Copies To [address] [address] Ziyad Carpenter MD [facility] [address] [place] [address] [address] [place] [address] NOTE: Unless otherwise stated, all tissue is formalin-fixed and paraffin- embedded. Some or all of the immunohistochemical tests reported herein may have been developed and their performance characteristics determined by [facility]. They have not been cleared or approved by the U.S. Food and Drug Administration (FDA). However, the FDA has determined that such clearance or approval is not necessary. This laboratory is certified under the Clinical Laboratory Improvement Amendments of 1988 (CLIA) as qualified to perform high complexity clinical laboratory testing. Electronically Signed By: Chance Baptiste MD 10/25/24 0888 Patient: Gita Purdy Age/Sex: 34/F MR#: [id number]. Age/Sex: 34/F Attending: Juhi Blank CNM : 1990 Submitted by: AbhayJuhi You CABALLERO Copies to: MR #: [id number] Status: DEP REF Collected: 09/27/24 Location: [facility] Received: 09/28/24 Interpretation ABNORMAL PAP TEST. Satisfactory for evaluation, with atypical squamous cells of undetermined significance (ASC-US), rare. Moderate inflammation. Coccobacilli consistent with shift in vaginal ximena. HPV High Risk: Positive HPV Genotyping 16: Negative HPV Genotyping 18: Negative Clinical Information LMP: No menses, IUD Previous PAP test: 2019, negative Other surgery: Other history: Material Received ThinPrep-Cervical Electronically Signed By: Jayne Rhodes MD 10/03/24 0932 As of May 10, 2024, the technical services to include automated prescreening performed by the ThinPrep Imaging System, PAP screening and HPV testing will be performed at [facility] (CLIA #[id number]), [address] [place] [address]. Testing for HPV was performed using the Ever NICOLE 6800 system. The presence of HPV in the female genital tract is associated with a number of diseases, including cervical carcinoma. The HPV DNA high risk pool tests for HPV 31, 33, 35, 39, 45, 51, 52, 56, 58, 59, 66 and 68. The testing for HPV 16 and 18 genotypes has also been performed. A positive result indicates detection of nucleic acid sequences from one or more subtypes, whereas a negative result indicates such sequences were not detected. All professional services are performed by [facility] ([address] [place] [address], [place] [address]; ; CLIA #[id number]). The PAP Test is a screening procedure with the inherent possibility of both false negative and false positive results. Results should be interpreted in the context of historic and current clinical findings. Reliability of the PAP Test is enhanced by performing the test on a regular repetitive basis. Patient: Gita Purdy Age/Sex: 34/F MR#: [id number] Page 1 of 1. UN: 10/27/24 1527 PAGE 1 [facility] [address] [place] [id number] Agricultural Research Technologist: Chance Baptiste M.D. Specimen Inquiry Name: Gita Purdy Age/Sex: 34/F : 1990 Unit#: [id number] Attend Dr: Juhi Blank CNM Re09/27/24 Status: DEP REF [facility] Disch: SPEC : [id number] [place]: 09/27/24 STATUS: COMP REQ : [id number] RECD: 09/27/24 [facility] DR: Juhi Blank CNM COMP: 09/28/2440 ENTERED: 09/27/[address] [facility] [address]: Courtney Case MD ORDERED: CT NG by PCR QUERIES: CT NG Source: Vaginal Test Result Flag Reference CT PCR DETECTED A Not Detect. Detected results may be observed after successful antibiotic treatment due to target nucleic acids from residual non-viable chlamydia. As with many diagnostic tests, results from the Xpert CT/NG assay should be interpreted in conjunction with other laboratory and clinical data available to the clinician. Xpert CT/NG performance has not been evaluated in patients less than 14 years of age. The assay should not be used for the evaluation of suspected sexual abuse or for other medico-legal indications. Additional testing is recommended in any circumstance when false positive or false negative results could lead to adverse medical, social or psychological consequences. These results must be reported by the ordering clinic shanita or clinical facility to the [facility] as required by state law. NG PCR NOT DETECTED Not Detect. A not detected test result does not exclude the possibility of infection because test results can be affected by improper specimen collection, concurrent antibiotic therapy, or the number of organisms in the specimen which may be below the sensitivity of the test. As with many diagnostic tests, results from the Xpert CT/NG assay should be interpreted in conjunction with other laboratory and clinical data available to the clinician. Xpert CT/NG performance has not been evaluated in patients less than 14 years of age. The assay should not be used for the evaluation of suspected sexual abuse or for other medico-legal indications. Additional testing is recommended in any circumstance when false positive or false negative results could lead to adverse medical, social or psychological consequences. Assessment & Plan Assessment & Plan (1) IUD check up: Code(s): Z30.431 - Encounter for routine checking of intrauterine contraceptive device Category: Medical (2) Cervical cancer screening: Comment: 09/27/2024 Pap is positive HPV the Pap itself is pending...... Pap now shows ASCUS,-refer for colpo. Code(s): Z12.4 - Encounter for screening for malignant neoplasm of cervix Category: Medical (3) ASCUS with positive high risk HPV cervical: Comment: Patient had colposcopy 10/23/24-has follow-up appointment with JAVI to review onel cabrera. Code(s): R87.610 - Atypical squamous cells of undetermined significance on cytologic smear of cervix (ASC-US); R87.810 - Cervical high risk human papillomavirus (HPV) DNA test positive Category: Medical (4) Potential exposure to STD: Code(s): Z20.2 - Contact with and (suspected) exposure to infections with a predominantly sexual mode of transmission Category: Medical (5) Presence of 52 mg levonorgestrel-releasing intrauterine device (IUD): Comment: inserted 07/09/20. Code(s): Z97.5 - Presence of (intrauterine) contraceptive device Category: Social Hx (6) Chlamydia infection: Comment: Treated with doxy 09/28/2024.; test of cure 10/27/24 Code(s): A74.9 - Chlamydial infection, unspecified Category: Medical Plan Test of cure was done for the chlamydia. She has an appointment to review her colposcopy results with Dr. Carpenter coming up in the next couple of weeks. I reviewed what I found in the chart about her Mirena IU S which was replaced on 07/09/2020. So discussed with her that it has been extended from 5 years to 8 years. However if she returns to normal menses after they have been absent for a long time she should use precautions and consider scheduling replacement at that time. The string is not visible today but it was at a previous visit so it may be yet again at a future visit. She is content to leave it alone for now. Discussed that we will be reviewing results on Wednesday and if that was positive we would re-treat her again. Coding Level of Care Code Est Pt Level 3 (41146) Diagnoses IUD check up Z30.431 Cervical cancer screening Z12.4 ASCUS with positive high risk HPV cervical R87.610; R87.810 Potential exposure to STD Z20.2 Presence of 52 mg levonorgestrel-releasing intrauterine device (IUD) Z97.5 Chlamydia infection A74.9
[2024-10-27 14:49] VITALS: BP 130/72; BMI 33.0
--- OUTSIDE RECORDS SUMMARY | 2024-10-27 14:51 | XMS_ITS | Clinical Summary ---
Author Organization [employer] Address [address] [facility] [address] [place] [address] Care Team Providers Care Rent And Housing Investigator Name Role Phone Courtney Case MD Primary [...] exercise, life style modifications, diet, referral to fiscal specialist. Discussed re lower calorie intake, increase dietary fiber Dietary counseling 01/21/2023 Assessment & Plan (01/21/2023 10:13 AM EDT): Discussed re weight reduction options including exercise, life style modifications, diet, referral to fiscal specialist. Discussed re lower calorie intake, increase [...] pap smear this year, she will call [facility] professor of biostatistics to schedule or will f/u next year [...] feels safe at home. 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 Follow up with [facility]: Not recommended for follow-up 2. Patient goal [...] exercise, life style modifications, diet, referral to fiscal specialist. Discussed re lower calorie intake, increase dietary fiber Order labs and FU with me in 3 weeks. Encounters Date Type Department Care Team Description 10/20/2024 Orders Only GENERIC EXTERNAL DATA DEPARTMENT Provider, Generic External Data 09/29/2024 Population Health Risk Score [facility] Department [address] [phone] Provider, Population Health Generic 09/29/2024 Telephone [facility] MEDICINE [address] [place] [address] Colleen Sharma, RN Results 09/27/2024 Orders Only GENERIC EXTERNAL DATA DEPARTMENT Provider, Generic External Data 07/31/2024 1:15 PM EST Office Visit [facility] OPTOMETRY [address] [place] [address] Norm, Erica, OD Myopia, bilateral (Primary Dx) [...] 2024 Influenza Vaccine (#1) 2024 Depression Monitoring 07/28/2024 01/26/2024, 023 Colposcopy 09/28/2024 Depression Screening 01/25/2025 01/26/2024, 01/23/20 [...] Procedure Name Priority Date/Time Associated Diagnosis Comments HEMATOXYLIN AND EOSIN STAIN Routine 10/20/2024 3:43 PM EDT PAP SMEAR Routine 09/27/2024 9:50 AM EDT [...] Recently Relevant to Health Maintenance Results * Hematoxylin and Eosin Stain (10/20/2024 3:43 PM EDT) 10/20/2024 3:43 PM EDT 10/23/2024 8:09 AM EDT [facility] LABS - 10/25/2024 2:07 PM EDT ----- ------- Name: Gita Purdy ? Age/Sex: 34/F ? : 1990 Unit#: [id number] ?? Attend Dr: Ziyad Carpenter MD ?Re10/20/24 ?Status: DEP REF ? Location: HO.LNP ?Disch: ? ----- ------- SPEC : [id number] ? RECD: 10/23/24-808 ? STATUS: ??SOUT ? REQ NUM: [id number] ? SOCORRO: 10/20/24-1543 ? SUBM DR: Ziyad Carpenter MD ? ENTERED: ??10/23/24 ?SP TYPE: Surgical ? YULIANA RAMOS: [facility] ? ORDERED: ??HE Stain/17, Gross Micro L4/6, IHC, Add. immunos, Ki-67, p16 ? Diagnosis ?? A. ??Endocervix, curettage: ??Inflamed cervical transformation zone mucosa with reactive ?? changes. ? B. ??Cervix, 1 o'clock, biopsy: ?- Low-grade squamous intraepithelial lesion (CHRIS 1). ?- Background inflamed cervical transformation zone mucosa. ? C. ??Cervix, 4 o'clock, biopsy: ?- Endocervical mucosa within normal limits. ?- No squamous epithelium identified. ? D. ??Cervix, 6 o'clock, biopsy: ??Mildly inflamed cervical transformation zone mucosa with ?? reactive changes. ? E. ??Cervix, 11 o'clock, biopsy: ?- Low-grade squamous intraepithelial lesion (CHRIS 1). ?- Background inflamed cervical transformation zone mucosa. ? F. ??Cervix, 12 o'clock, biopsy: ??Mildly inflamed cervical transformation zone mucosa with ?? reactive changes. ? COMMENT: The findings are concordant with the patient's recent Pap/cytology specimen ?? ([id number]; ASCUS with positive HR HPV) - slide reviewed. ?Clinical History ASCUS with positive HPV cervical ?Microscopic Description A-F. ??Microscopic sections reviewed. ??Immunostains for p16 and Ki-67 support the diagnoses in parts B and E. ? Material Received ?? A. ECC ?? B. Cx bx 1 o'clock ?? C. Cx bx 4 o'clock ?? D. Cx bx 6 o'clock ?? E. Cx bx 11 o'clock ?? F. Cx bx 12 o'clock ? CONTINUED ON NEXT PAGE ----- ------- Name: Gita Purdy ? Age/Sex: 34/F ? : 1990 Unit#: [id number] ?? Attend Dr: Ziyad Carpenter MD ?Re10/20/24 ?Status: DEP REF ? Location: HO.LNP ?Disch: ? ----- ------- SPEC : [id number] ? RECD: 10/23/24 ? STATUS: ??SOUT ? REQ NUM: [id number] ? SOCORRO: 10/20/24-1542 ? SUBM DR: Ziyad Carpenter MD ? ENTERED: ??10/23/24 ?SP TYPE: Surgical ? OTHR DR: [facility] ? ORDERED: ??HE Stain/17, Gross Micro L4/6, IHC, Add. immunos, Ki-67, p16 ? Gross Description Received in six parts. Part A: ??Received in formalin labeled ?ECC? is a 0.2 x 0.1 x 0.1 cm aggregate of jaramillo mucus, submitted in toto in a cassette labeled A. Part B: ??Received in formalin labeled ?cx bx 1 is a 0.3 cm in greatest dimension partially fragmented jaramillo irregular fragment of mucosa with cloudy hussein-white mucus, submitted in toto in a cassette labeled B. Part C: ??Received in formalin labeled cx bx 4 is a 0.15 cm rubbery, hussein- white irregular fragment of mucosa along with copious cloudy hussein-white mucus, submitted in toto in a cassette labeled C. Part D: ??Received in formalin labeled ?cx bx 6 is a 0.4 cm rubbery, hussein- white wedge-shaped fragment of mucosa with scant cloudy hussein-white mucus, submitted in toto in a cassette labeled D. Part E: ??Received in formalin labeled ?cx bx 11? is a 0.3 cm hussein-jaramillo irregular fragment of mucosa with scant cloudy hussein-white mucus, submitted in toto in a cassette labeled E. Part F: ??Received in formalin labeled ?cx bx 12? are 2 hussein-jaramillo irregular tissue fragments measuring 0.15 and 0.3 cm, submitted in toto in a cassette labeled F. ??CEDS Special studies ordered and performed: Immunostains for p16 and Ki-67 on B and E. Copies To: ?? [facility] ?? [address] ?? [place] ? Ziyad Carpenter MD ?? [facility] Women's Services ?? [address] ?? [place] ?? [phone] ----- ------- Signed (signature on file) Chance Baptiste MD 10/25/24 1407 ? ----- ------- ? END OF REPORT ? us Generic External Data Provider LAB BLOOD ORDERAB LES Final Result [facility] [address] [place] [phone] * (ABNORMAL) Bacterial Vaginosis (09/27/2024 9:50 AM EDT) TRICHOMONAS VAGINALIS DETECTION BY PCR NOT DETECTED Not Detect [facility] BACTERIAL VAGINOSIS DETECTION BY PCR POSITIVE(A) Negative [facility] Comment:The BV organism targ ets [...] DETECTION BY PCR NOT DETECTED Not Detect [facility] Luzmaria glab krusei PCR NOT DETECTED Not Detect [facility] 09/27/2024 9:50 AM EDT 09/27/2024 5:02 PM EDT Generic External Data Provider LAB MICROBIOLOGY - GENERAL ORDERABLES Final Result Performing Organization Address [facility] Co de Phone Number [facility] [address] [place] [phone] * (ABNORMAL) HPV DNA, Low/High Risk (09/27/2024 9:50 AM EDT) Pathologist [facility] HPV High Risk Positive(A) Negative [facility] HPV Genotype 16 Negative Negative [facility] HPV Genotype 18 Negative Negative [facility] Comment:HPV testing performe d at [facility] (CLIA#[id number]), [address] [place] [address].Testing for HPV was performed using the Ever [...] 9:50 AM EDT 09/28/2024 6:32 AM EDT Generic External Data Provider LAB BLOOD ORDERAB LES Final Result Performing Organization Address [facility] Co de Phone Number [facility] [address] [place] [phone] * (ABNORMAL) Chlamydia/N. Gonorrhoeae RNA, TMA, Urogenitial (09/27/2024 9:50 AM EDT) CT PCR DETECTED(A) Not Detect. [facility] Comment:Detected results may be observed [...] the ordering clinician orclinical facility [facility] required by state law. NG PCR NOT DETECTED Not Detect. [facility] Comment:A not detected test result [...] AM EDT 09/27/2024 5:02 PM EDT Narrative [facility] - 09/28/2024 5:40 AM EDT Vaginal us Generic External Data Provider LAB MICROBIOLOGY - GENERAL ORDERABLES Final Result [facility] [address] [place] [phone] * Pap Smear (09/27/2024 9:50 AM EDT) 09/27/2024 9:50 AM EDT 09/28/2024 6:10 AM EDT [facility] - 10/03/2024 9:32 AM EDT ----- ------- Name: Gita Purdy ? Age/Sex: 34/F ? : 1990 Unit#: [id number] ?? Attend Dr: Juhi Blank CNM ?Re09/27/24 ?Status: DEP REF ? Location: HO.LNP ?Disch: ? ----- ------- SPEC : [id number] ? RECD: 09/28/24-609 ? STATUS: ??SOUT ? REQ NUM: [id number] ? SOCORRO: 09/27/24-949 ? SUBM DR: AbhayJuhi Orta CNM ? ENTERED: ??09/28/24-618 ?SP TYPE: Pap Smr ?OTHR : ? ORDERED: ??Pap Smear, PAP path review [...] (signature on file) Jayne Rhodes MD 10/03/24 5738 ? ----- ------- ? END OF REPORT ? us Generic External Data Provider LAB CYTOLOGY ORDE RABELEONORA Final Result Performing Organization Address [facility] Co de Phone Number [facility] [address] [place] [phone] [phone] * HIV-1/2 Antigen and Antibodies, Fourth Generation, with Reflexes (01/26/2024 11:26 AM EDT) HIV AB/AG Nonreactive Nonreactive [facility] Comment:HIV-1 p24 Ag and/or HIV-1/HIV-2 Ab not detected.A test result that is nonreactive does not exclude thepossibility of exposure to or infection with HIV-1 and/orHIV-2. Nonreactive results in this assay for individualswith prior exposure to HIV-1 and/or HIV-2 may be due toantigen and antibody levels that are below the limit ofdetection of this assay.The [employer] HIV Ag/Ab Combo assay result andsupplemental assay results should be interpreted inconjunction with the patient's clinical presentation,history and other laboratory results. If the results areinconsistent with clinical evidence, additional testing issuggested to confirm the result. Blood Venous blood specimen / Unknown 01/26/2024 11:26 AM EDT 01/26/2024 12:59 PM EDT us Courtney Case MD LAB BLOOD ORDERABLES Fin al Result Performing Organization Address [facility] Co de Phone Number [facility] [address] [place] [phone] * Lipid Panel with Reflex to Direct LDL (01/26/2023 10:54 AM EDT) Triglycerides 80 mg/dL [facility] Comment:Desirable Triglyceri de: less than 150 mg/dLBorderline High Triglyceride 150-199 mg/dLHigh Triglyceride: 200-499 mg/dLVery High Triglyceride: greater than or equal to 5OO mg/dL Cholesterol 202 mg/dL [facility] Comment:Desirable Cholestero l: less than 200 mg/dLBorderline High Cholesterol: 200-239 mg/dLHigh Cholesterol: greater than 239 mg/dL LDL Cholesterol Calculated 140 mg/dl [facility] Comment:Desirable LDL: less than 100 mg/dLNear Optimal/Above Optimal LDL: 110- 129 mg/dLBorderline High LDL: 130-159 mg/dLHigh LDL: 160-189 mg/dLVery High LDL: greater than or equal to 190 mg/dL HDL Cholesterol 46 mg/dL [facility] Comment:Desirable HDL: great er than 40 mg/dL Note: This HDL assay may give artificially low results in patients with liver disease. 01/26/2023 10:5 4 AM EDT 01/26/2023 12:59 PM EDT [facility] External Provider LAB BLO OD ORDERABLES Final Result [facility] [address] [place] [phone] * Hepatitis Panel, General (01/26/2023 10:54 AM EDT) Hepatitis A IgM Nonreactive Nonreactive [facility] Comment:IgM antibodies to ORDOÑEZ V not detected; does not exclude earlyacute or recovered HAV infection. ~Hepatitis B Surface Antibody NONREACTIVE Nonreactive [facility] Comment:Nonreactive: < 8.00 mIU/mL Hepatitis B Core Antibody Nonreactive Nonreactive [facility] Hepatitis C Antibody Nonreactive Nonreactive [facility] Comment:Antibodies to HCV no t detected; does not exclude early acuteHCV infection. Hepatitis B Surface Ag Negative Negative [facility] 01/26/2023 10:5 4 AM EDT 01/26/2023 12:59 PM EDT [facility] External Provider LAB BLO OD ORDERABLES Final Result [facility] [address] [place] [address] [phone] from Last 3 Months or Most Recently Relevant to Health Maintenance Insurance C3 Care Teams Rent And Housing Investigator Relationship Specialty Start Date End Date Courtney Case MD [address] [place] [phone] PCP - General Family Medicine 04/18/19
--- OUTSIDE RECORDS SUMMARY | 2024-10-27 14:51 | XMS_ITS | Encounter Summary ---
Author Organization [employer] Address [address] [facility] [address]t [place] [address] Care Team Providers Care Outsole Paraffiner Name Role Phone Courtney aCse MD Primary Care Provider + Encounter Details Date Type Department Care Team ([facility] Contact Info) Description 10/20/2024 Orders Only GENERIC EXTERNAL DATA DEPARTMENT Provider, Generic External Data Social History Tobacco Use Types Packs/Day Years Used Date Smoking Tobacco: Never Smokeless Tobacco: Never Alcohol Use Standard Drinks/Week Comments Not Currently 0 (1 standard drink = 0.6 oz pur e alcohol) rare Depression Answer Date Recorded Patient Health Questionnaire-9 Score 14 01/22/2023 Housing Stability Answer Date Recorded What is your housing situation today? I have cristiancynthia montenegro 01/26/[address] you [...] not to disclose 2021 10:14 AM EDT documented as of this encounter Plan of Treatment Not on file documented as of this encounter Procedures Procedure Name Priority Date/Time Associated Diagnosis Comments HEMATOXYLIN AND EOSIN STAIN Routine 10/20/2024 3:43 PM EDT documented in this encounter Results * Hematoxylin and Eosin Stain (10/20/2024 3:43 PM EDT) 10/20/2024 3:43 PM EDT 10/23/2024 8:09 AM EDT [facility] - 10/25/2024 2:07 PM EDT ----- ------- Name: Gita Purdy ? Age/Sex: 34/F ? : 1990 Unit#: [id number] ?? Attend Dr: Ziyad Carpenter MD ?Re10/20/24 ?Status: DEP REF ? Location: HO.LNP ?Disch: ? ----- ------- SPEC : [id number] ? RECD: 10/23/24 ? STATUS: ??SOUT ? REQ NUM: [id number] ? SOCORRO: 10/20/24-1542 ? SUBM DR: Ziyad Carpenter MD ? ENTERED: ??10/23/24 ?SP TYPE: Surgical ? OTHR DR: [facility] ? ORDERED: ??HE Stain/17, Gross Micro L4/6, [...] with the patient's recent Pap/cytology specimen ?? ([id number]; ASCUS with positive HR HPV) - slide [...] ? Age/Sex: 34/F ? : 1990 Unit#: [id number] ?? Attend Dr: Ziyad Carpenter MD ?Re10/20/24 ?Status: DEP REF ? Location: HO.LNP ?Disch: ? ----- ------- SPEC : [id number] ? RECD: 10/23/24 ? STATUS: ??SOUT ? REQ NUM: [id number] ? SOCORRO: 10/20/24 ? SUBM DR: Ziyad Carpenter MD ? ENTERED: ??10/23/24 ?SP TYPE: Surgical ? OTHR DR: [facility] ? ORDERED: ??HE Stain/17, Gross Micro L4/6, [...] on B and E. Copies To: ?? [facility] ?? [address] ?? [place] [address] ? Ziyad Carpenter MD ?? [facility] ?? [address] ?? [place] [address] ?? [phone] ----- ------- Signed (signature on file) Chance Baptiste MD 10/25/24 0993 ? ----- ------- ? END OF REPORT ? us Generic External Data Provider LAB BLOOD ORDERAB LES Final Result [facility] [address] [place], [place] [phone] documented in this encounter Visit Diagnoses Not on filedocumented in this encounter Additional Health Concerns Assessment Noted Time PHQ-9 Depression Total Score: 14 023 11:45 AM EDT documented as of this encounter Care Teams Outsole Paraffiner Relationship Specialty Start Date End Date Courtney Case MD [address] [place] [phone] PCP - General Family Medicine 04/18/19 documented as of this encounter
== END 2024-10-27 15:41 | disposition home or self-care (01) ==
LOC: HO.HWS 14:37
PROVIDERS: PCP Internal Medicine; Visit Provider Advanced Practice Midwife
DX: Z30.431 Encounter for routine checking of intrauterine contraceptive device (principal); Z12.4 Encounter for screening for malignant neoplasm of cervix; R87.610 Atypical squamous cells of undetermined significance on cytologic smear of cervix (ASC-US); R87.810 Cervical high risk human papillomavirus (HPV) DNA test positive; Z20.2 Contact with and (suspected) exposure to infections with a predominantly sexual mode of transmission; Z97.5 Presence of (intrauterine) contraceptive device; A74.9 Chlamydial infection, unspecified
CPT/HCPCS: 99213

== ENCOUNTER 2024-11-15 14:00 | Outpatient (AMB) | payer MEDICAID, SELFPAY ==
--- NOTE | 2024-11-15 14:02 | MHC.OFFVIS ---
Vital Signs 11/15/24 14:03 Height 5 ft Weight 169 lb BMI 33.0 Intake Visit Reasons: colpo results Allergies No Known Allergies Allergy (Verified 10/27/24 14:50) HPI Comments Details: Presenting post colpo for follow-up. The patient is doing well with no complaints. The pathology showed the following: A. Endocervix, curettage: Inflamed cervical transformation zone mucosa with reactive changes. B. Cervix, 1 o'clock, biopsy: - Low-grade squamous intraepithelial lesion (CHRIS 1). - Background inflamed cervical transformation zone mucosa. C. Cervix, 4 o'clock, biopsy: - Endocervical mucosa within normal limits. - No squamous epithelium identified. D. Cervix, 6 o'clock, biopsy: Mildly inflamed cervical transformation zone mucosa with reactive changes. E. Cervix, 11 o'clock, biopsy: - Low-grade squamous intraepithelial lesion (CHRIS 1). - Background inflamed cervical transformation zone mucosa. F. Cervix, 12 o'clock, biopsy: Mildly inflamed cervical transformation zone mucosa with reactive changes. COMMENT: The findings are concordant with the patient's recent Pap/cytology specimen ([id number]; ASCUS with positive HR HPV) - slide reviewed [facility] Medical History Chondromalacia patellae of right knee Family History Mother HTN (hypertension) Social History Alcohol intake: never Patient Tobacco Use Status: Never used Tobacco Gender identity: Female Female Reproductive History Menstrual Age of Menarche: 11 Review of Systems Const All systems reviewed & are unremarkable except as noted in HPI and below Reports as per HPI and Reports no additional complaints GI Reports no additional complaints Reports no additional complaints Physical Exam Vital Signs: BMI result Body Mass Index 33.0 Assessment & Plan Assessment & Plan (1) Dysplasia of cervix, low grade (CHRIS 1): Code(s): N87.0 - Mild cervical dysplasia Category: Medical Plan: Discussed with the patient the pathology results of the colposcopy biopsies & endocervical curettage ( mild dysplasia-CHRIS 1). Discussed with the patient the sensitivity specificity, positive and negative predictive value in detecting cervical cancer in addition discussed the regression, persistence and progression rates. Recommended co-testing in 12 months, if cytology and or HPV are abnormal will proceed was colposcopy biopsy and endocervical curettage. Instructions given to the patient to schedule a co test appointment in 1 year. All questions answered the patient verbalized understanding. Coding Level of Care Code Est Pt Level 3 (74714) Diagnoses Dysplasia of cervix, low grade (CHRIS 1) N87.0
[2024-11-15 14:03] VITALS: BMI 33.0
--- OUTSIDE RECORDS SUMMARY | 2024-11-15 15:12 | XMS_ITS | Encounter Summary ---
Author Organization [employer] Address [address] [place] [address] Care Team Providers Care Cutter Hot Knife Name Role Phone Courtney Case MD Primary Care Provider + Encounter Details Date Type Department Care Team (Late st Contact Info) Description 11/15/2024 Orders Only [facility] MED & PEDS [address] [place], [place] [phone] ProviderOndina MD Social History Tobacco Use Types Packs/Day Years [...] as of this encounter Plan of Treatment Upcoming Encounters Date Type Department Care Team (Late st Contact Info) Description 01/30/2025 10:00 AM EDT Office Visit [facility] MEDICINE [address] [place], [place] [phone] Courtney Case MD [address] [place] [address] [phone] documented as of this encounter Procedures Procedure Name Priority Date/Time Associated Diagnosis Comments COLPOSCOPY Routine 10/20/2024 11:19 AM EDT PAP/HPV Routine 10/20/2024 11:17 AM EDT documented in this encounter Results * Colposcopy (10/20/2024 11:19 AM EDT) Historical Provider IN CLINIC/BEDSIDE ORDERAB LES Final Result * (ABNORMAL) PAP/HPV (10/20/2024 11:17 AM EDT) Pap Smear 2. ASCUS(A) 1. NILM HPV Detected(A ) Undetected, Indeterminate , Quantitative, Not Detected us Historical Provider HEALTH MAINTENANCE Edited Result - Final documented in this encounter Visit Diagnoses Not on filedocumented in this encounter Additional Health Concerns Assessment Noted Time PHQ-9 Depression Total Score: 14 023 11:45 AM EDT documented as of this encounter Care Teams Cutter Hot Knife Relationship Specialty Start Date End Date Courtney Case MD [address] [place] [phone] PCP - General Family Medicine 04/18/19 documented as of this encounter
--- OUTSIDE RECORDS SUMMARY | 2024-11-15 15:12 | XMS_ITS | Clinical Summary ---
Author Organization [employer] Address [address] [facility] [address] [place] [address] Care Team Providers Care Superintendent Container Terminal Name Role Phone Courtney Case MD Primary [...] exercise, life style modifications, diet, referral to application specialist. Discussed re lower calorie intake, increase dietary fiber Dietary counseling 01/21/2023 Assessment & Plan (01/21/2023 10:13 AM EDT): Discussed re weight reduction options including exercise, life style modifications, diet, referral to application specialist. Discussed re lower calorie intake, increase [...] pap smear this year, she will call [facility] porcelain waxer to schedule or will f/u next year [...] feels safe at home. PAP smear Obtain ATLASSIAN ADMINISTRATOR note from [facility] and fu next visit Eye [...] of change PLAN: 1. Follow up with [facility]: Not recommended for follow-up 2. Patient goal [...] exercise, life style modifications, diet, referral to application specialist. Discussed re lower calorie intake, increase dietary fiber Order labs and FU with me in 3 weeks. Encounters Date Type Department Care Team Description 11/15/2024 Orders Only [facility] MED & PEDS [address] [place] [address] Provider, MD Ondian 11/02/2024 Telephone [facility] MEDICINE [address] [place] [address] Courtney Case MD January10/27/2024 Orders Only GENERIC EXTERNAL DATA DEPARTMENT Provider, Generic External Data 10/20/2024 Orders Only GENERIC EXTERNAL DATA DEPARTMENT Provider, Generic External Data 09/29/2024 Population Health Risk Score [facility] ([facility]) Department [address] [place] [phone] Provider, Population Health Generic 09/29/2024 Telephone [facility] MEDICINE [address] [place] [address] Colleen Sharma RN Results 09/27/2024 Orders Only GENERIC EXTERNAL DATA DEPARTMENT Provider, Generic External Data from Last 3 Months Immunizations Name Administration [...] 01/26/2024 10:44 AM EDT Plan of Treatment Upcoming Encounters Date Type Department Care Team (Late st Contact Info) Description 01/30/2025 10:00 AM EDT Office Visit [facility] MEDICINE [address] [place] [address] Courtney Case MD [address] [place] [address] Health Maintenance Due Date Last Done Comments Alcohol/Substance Use Screening 2004 COVID-19 Vaccine ( season) 2024 Influenza Vaccine (#1) 2024 Depression Screening 01/25/2025 01/26/2024, 01/23/20 23 Family Planning (PISQ) 01/25/2025 01/26/2024 SDOH Screening 01/25/2025 01/26/2024 Tobacco Screening 05/29/2025 05/29/2024 DTaP/Tdap/Td Vaccines (7 - Td or Tdap) 12/24/2025 12/25/2015, 02/18/2004, 11/09/1994, Additional history exists Cervical Cancer Screening 10/21/2027 HPV/Cotest 10/21/2027 10/20/2024, 09/27/2024 Pap Smear 10/21/2027 10/20/2024, 09/16, 06/17/2020 Lipid Panel 01/27/2028 01/26/2023 Zoster Vaccines [...] Completed 01/26/2024, 12/25/2015, 1990, Additional history exists Colposcopy Completed 10/20/2024 Hepatitis A Vaccines Aged Out No long [...] Procedure Name Priority Date/Time Associated Diagnosis Comments CHLAMYDIA/N. GONORRHOEAE RNA, TMA, UROGENITAL Routine 10/27/2024 2:36 PM EDT BACTERIAL VAGINOSIS PANEL Routine 10/27/2024 2:36 PM EDT HEMATOXYLIN AND EOSIN STAIN Routine 10/20/2024 3:43 PM EDT COLPOSCOPY Routine 10/20/2024 11:19 AM EDT HM PAP/HPV Routine 10/20/2024 11:17 AM EDT AMB REFERRAL TO GYNECOLOGY Routine 09/28/2024 Encounter for gynecological examination without abnormal finding IUD check up PAP SMEAR Routine 09/27/2024 9:50 AM EDT [...] Recently Relevant to Health Maintenance Results * Bacterial Vaginosis (10/27/2024 2:36 PM EDT) Only the most recent of2 resultswithin the time period is included. TRICHOMONAS VAGINALIS DETECTION BY PCR NOT DETECTED Not Detect [facility] BACTERIAL VAGINOSIS DETECTION BY PCR NEGATIVE Negative [facility] Comment:The BV organism targ ets [...] DETECTION BY PCR NOT DETECTED Not Detect [facility] Luzmaria glab krusei PCR NOT DETECTED Not Detect [facility] 10/27/2024 2:36 PM EDT 10/27/2024 4:15 PM EDT us Generic External Data Provider LAB MICROBIOLOGY - GENERAL ORDERABLES Final Result [facility] [address] [place] [address] [phone] * Chlamydia/N. Gonorrhoeae RNA, TMA, Urogenitial (10/27/2024 2:36 PM EDT) Only the most recent of2 resultswithin the time period is included. CT PCR NOT DETECTED Not Detect. [facility] Comment:A not detected test result [...] lead to adverse medical, social or psychologicalconsequences. NG PCR NOT DETECTED Not Detect. [facility] Comment:A not detected test result [...] lead to adverse medical, social or psychologicalconsequences. 10/27/2024 2:36 PM EDT 10/27/2024 4:15 PM EDT Narrative [facility] - 10/27/2024 6:05 PM EDT Vaginal us Generic External Data Provider LAB MICROBIOLOGY - GENERAL ORDERABLES Final Result [facility] [address] [place] [address] [phone] * Hematoxylin and Eosin Stain (10/20/2024 3:43 PM EDT) 10/20/2024 3:43 PM EDT 10/23/2024 8:09 AM EDT Narrative [facility] - 10/25/2024 2:07 PM EDT ----- ------- Name: Gita Purdy ? Age/Sex: 34/F ? : 1990 Unit#: [id number] ?? Attend Dr: Ziyad Carpenter MD ?Re10/20/24 ?Status: DEP REF ? Location: HO.LNP ?Disch: ? ----- ------- SPEC : [id number] ? RECD: 10/23/24 ? STATUS: ??SOUT ? REQ NUM: [id number] ? SOCORRO: 10/20/24-3 ? SUBM DR: Ziyad Carpenter MD ? ENTERED: ??10/23/24 ?SP TYPE: Surgical ? OTHR DR: [facility] ? ORDERED: ??HE Stain/17, Gross Micro L4/6, [...] with the patient's recent Pap/cytology specimen ?? ([id number]; ASCUS with positive HR HPV) - slide [...] ? Age/Sex: 34/F ? : 1990 Unit#: [id number] ?? Attend Dr: Ziyad Carpenter MD ?Re10/20/24 ?Status: DEP REF ? Location: HO.LNP ?Disch: ? ----- ------- SPEC : [id number] ? RECD: 10/23/24 ? STATUS: ??SOUT ? REQ NUM: [id number] ? SOCORRO: 10/20/24-3 ? SUBM DR: Ziyad Carpenter MD ? ENTERED: ??10/23/24 ?SP TYPE: Surgical ? OTHR DR: [facility] ? ORDERED: ??HE Stain/17, Gross Micro L4/6, [...] on B and E. Copies To: ?? [facility] ?? [address] ?? [place] [id number] ? Ziyad Carpenter MD ?? [facility] ?? [address] ?? [place] ?? [phone] ----- ------- Signed (signature on file) Chance Baptiste MD 10/25/24 3696 ? ----- ------- ? END OF REPORT ? us Generic External Data Provider LAB BLOOD ORDERAB LES Final Result [facility] [address] [place] [address] [phone] * Colposcopy (10/20/2024 11:19 AM EDT) us Historical Provider IN CLINIC/BEDSIDE ORDERAB LES Final Result * (ABNORMAL) HM PAP/HPV (10/20/2024 11:17 AM EDT) Pap Smear 2. ASCUS(A) 1. NILM HPV Detected(A ) Undetected, Indeterminate , Quantitative, Not Detected Historical Provider HEALTH MAINTENANCE Edited Result - Final * Referral to Gynecology (09/28/2024) Cecilia Jerez - 09/28/2024 See external hospital admission note on 09/28/2024 Courtney Case MD OUTPATIENT REFERRAL ORDReggie SOSA Final Result * (ABNORMAL) HPV DNA, Low/High Risk (09/27/2024 9:50 AM EDT) HPV High Risk Positive(A) Negative [facility] HPV Genotype 16 Negative Negative [facility] HPV Genotype 18 Negative Negative [facility] Comment:HPV testing performe d at [facility] (CLIA#[id number]), [address] [place] [address].Testing for HPV was performed using the Ever [...] Provider LAB BLOOD ORDERAB LES Final Result [facility] [address] [place] [phone] * Pap Smear (09/27/2024 9:50 AM EDT) 09/27/2024 9:50 AM EDT 09/28/2024 6:10 AM EDT [facility] - 10/03/2024 9:32 AM EDT ----- ------- Name: Gita Purdy ? Age/Sex: 34/F ? : 1990 Unit#: [id number] ?? Attend Dr: Juhi Blank CNM ?Re09/27/24 ?Status: DEP REF ? Location: HO.LNP ?Disch: ? ----- ------- SPEC : [id number] ? RECD: 09/28/24-609 ? STATUS: ??SOUT ? REQ NUM: [id number] ? SOCORRO: 09/27/24-949 ? SUBM DR: Kelly,Jhui T CNM ? ENTERED: ??09/28/24-618 ?SP TYPE: Pap [...] (signature on file) Jayne Rhodes MD 10/03/24 9610 ? ----- ------- ? END OF REPORT ? Generic External Data Provider LAB CYTOLOGY ORDE RABLES Final Result Performing Organization Address [facility] de Phone Number [facility] [address] [place] [address] [phone] * HIV-1/2 Antigen and Antibodies, Fourth Generation, with Reflexes (01/26/2024 11:26 AM EDT) HIV AB/AG Nonreactive Nonreactive [facility] Comment:HIV-1 p24 Ag and/or HIV-1/HIV-2 Ab not detected.A test result that is nonreactive does not exclude thepossibility of exposure to or infection with HIV-1 and/orHIV-2. Nonreactive results in this assay for individualswith prior exposure to HIV-1 and/or HIV-2 may be due toantigen and antibody levels that are below the limit ofdetection of this assay.[employer] HIV Ag/Ab Combo assay result andsupplemental assay results should be interpreted inconjunction with the patient's clinical presentation,history and other laboratory results. If the results areinconsistent with clinical evidence, additional testing issuggested to confirm the result. Blood Venous blood specimen / Unknown 01/26/2024 11:26 AM EDT 01/26/2024 12:59 PM EDT us Courtney Case MD LAB BLOOD ORDERABLES Fin al Result Performing Organization Address [facility] Co de Phone Number [facility] [address] [place] [address] [phone] * Lipid Panel with Reflex to Direct LDL (01/26/2023 10:54 AM EDT) Triglycerides 80 mg/dL [facility] Comment:Desirable Triglyceri de: less than 150 mg/dLBorderline High Triglyceride 150-199 mg/dLHigh Triglyceride: 200-499 mg/dLVery High Triglyceride: greater than or equal to 5OO mg/dL Cholesterol 202 mg/dL [facility] Comment:Desirable Cholestero l: less than 200 mg/dLBorderline High Cholesterol: 200-239 mg/dLHigh Cholesterol: greater than 239 mg/dL LDL Cholesterol Calculated 140 mg/dl [facility] Comment:Desirable LDL: less than 100 mg/dLNear Optimal/Above Optimal LDL: 110- 129 mg/dLBorderline High LDL: 130-159 mg/dLHigh LDL: 160-189 mg/dLVery High LDL: greater than or equal to 190 mg/dL HDL Cholesterol 46 mg/dL [facility] Comment:Desirable HDL: great er than 40 mg/dL Note: This HDL assay may give artificially low results in patients with liver disease. 01/26/2023 10:5 4 AM EDT 01/26/2023 12:59 PM EDT [facility] External Provider LAB BLO OD ORDERABLES Final Result [facility] [address] [place] [address] [phone] * Hepatitis Panel, General (01/26/2023 10:54 AM EDT) Hepatitis A IgM Nonreactive Nonreactive [facility] Comment:IgM antibodies to ORDOÑEZ V not detected; does not exclude earlyacute or recovered HAV infection. ~Hepatitis B Surface Antibody NONREACTIVE Nonreactive [facility] Comment:Nonreactive: < 8.00 mIU/mL Hepatitis B Core Antibody Nonreactive Nonreactive [facility] Hepatitis C Antibody Nonreactive Nonreactive [facility] Comment:Antibodies to HCV no t detected; does not exclude early acuteHCV infection. Hepatitis B Surface Ag Negative Negative [facility] 01/26/2023 10:5 4 AM EDT 01/26/2023 12:59 PM EDT [facility] External Provider LAB BLO OD ORDERABLES Final Result [facility] [address] [place] [address] [phone] from Last 3 Months or Most Recently Relevant to Health Maintenance Insurance [facility] C3 Care Teams Superintendent Container Terminal Relationship Specialty Start Date End Date Courtney Case MD [address] [place] [phone] PCP - General Family Medicine 04/18/19
== END 2024-11-15 15:46 | disposition home or self-care (01) ==
LOC: HO.HWS 14:00
PROVIDERS: PCP Internal Medicine; Visit Provider Obstetrics & Gynecology
DX: N87.0 Mild cervical dysplasia (principal)
CPT/HCPCS: 99213

== ENCOUNTER → 2024-11-15 14:00 | Outpatient (BNVA) | payer MEDICAID, SELFPAY | PROVIDERS: PCP Internal Medicine; Visit Provider Obstetrics & Gynecology | DX: N87.0 Mild cervical dysplasia (principal) | CPT/HCPCS: 99212 ==

== ENCOUNTER 2025-06-28 15:33 | Outpatient (AMB) | payer MEDICAID, SELFPAY ==
--- NOTE | 2025-06-28 15:49 | MHC.OFFVIS ---
Vital Signs 06/28/25 15:51 Height 5 ft Weight 172 lb BMI 33.6 BP 126/78 Intake Visit Reasons: Bleeding with IUD Other Sales Support Worker Required: No Information Interpreted: non-clinical & clinical Capsule Filling Machine Operator: Capsule Filling Machine Operator Present (Richa MISHRA) Accompanied by: Self / Same As Patient Allergies No Known Allergies Allergy (Verified 06/28/25 15:52) Is last menstrual period known: No (mirena) HPI Comments Details: Presenting complaining of vaginal bleeding last 2 weeks on Mirena IUD associated with pelvic cramping no other symptoms PFSH Medical History Chondromalacia patellae of right knee Family History Mother HTN (hypertension) Social History Alcohol intake: never Patient Tobacco Use Status: Never used Tobacco Gender identity: Female Female Reproductive History Menstrual Age of Menarche: 11 control method: progestin IUCD Review of Systems Const All systems reviewed & are unremarkable except as noted in HPI and below Physical Exam General: Yes no CVA tenderness External Female Exam: normal external appearance and normal appearance of the urethra Speculum Exam - Vagina: normal appearance of the vagina, normal palpation, no lesions and no masses Speculum Exam - Cervix: normal appearance of the cervix, normal palpation, no lesions, no masses, nontender and no other (IUD string in place) Bimanual exam- vagina & uterus: normal bimanual exam, normal palpation, uterine size normal, normal palpation, uterine shape normal, No Cervical tenderness present and non-tender Bimanual Exam- Adnexa, other: normal adnexae Back/Spine/Pelvis Back: no CVA tenderness Results AMB Test Urine AMB Test Urine Negative Last Edit by Richa Larry CMA on 06/28/25 16:01 Assessment & Plan Assessment & Plan (1) Abnormal uterine bleeding (AUB): Comment: With Mirena IUD Code(s): N93.9 - Abnormal uterine and vaginal bleeding, unspecified Category: Medical Plan: UPT done in the office was negative. GC and chlamydia taken CBC, TSH, HCG, and pelvic ultrasound ordered. Discussed with the patient the different causes of abnormal bleeding including thyroid disorders, uterine and ovarian pathology, and other potential causes. Discussed with the patient the work up including CBC (to r/o anemia), TSH, pelvic Ultrasound. All questions answered and the patient verbalized understanding. Instructed the patient to schedule an appointment for an endometrial biopsy in 2 weeks. Orders: Orders AMB HCG Urine Test Today Z32.02 - Encounter for test, result negative TSH reflex Free T4 Today N93.9 - Abnormal uterine and vaginal bleeding, unspecified HCG Quantitative Today N93.9 - Abnormal uterine and vaginal bleeding, unspecified Complete Blood Count no Diff Today N93.9 - Abnormal uterine and vaginal bleeding, unspecified US pelvic and transvaginal Today N93.9 - Abnormal uterine and vaginal bleeding, unspecified Coding Level of Care Code Est Pt Level 3 (03478) Diagnoses Abnormal uterine bleeding (AUB) N93.9
[2025-06-28 15:51] VITALS: BP 126/78; BMI 33.6
== END 2025-06-28 16:28 | disposition home or self-care (01) ==
LOC: HO.HWS 15:33
PROVIDERS: PCP Internal Medicine; Visit Provider Obstetrics & Gynecology
DX: Z32.02 Encounter for pregnancy test, result negative (principal); N93.9 Abnormal uterine and vaginal bleeding, unspecified
CPT/HCPCS: 99213

== ENCOUNTER 2025-06-28 15:33 | Outpatient (REF) | payer MEDICAID, SELFPAY ==
[2025-06-28 18:25] LABS: Hematocrit 41.7 % (37.0-47.0); Hemoglobin 14.0 g/dl (12.0-16.0); Mean Corpuscular HGB Conc 33.6 g/dl (31.0-35.0); Mean Corpuscular Hemoglobin 31.4 pg (27.0-33.0); Mean Corpuscular Volume 93.5 fL (80.0-98.0); NRBC Abs Auto 0.000 X10*3/uL (0.0-0.012); NRBC Pct Auto 0.0 /100WBC (0.0-0.2); Platelet Count 338 X10*3/uL (160-400); Red Blood Count 4.46 X10*6/uL (4.20-5.50); White Blood Count 9.4 X10*3/uL (4.8-10.8)
--- OUTSIDE RECORDS SUMMARY | 2025-06-28 23:18 | XMS_ITS | Encounter Summary ---
Author Organization [employer] Address [address] [place] [address] Care Team Providers Care Programmer Operator Numerical Control Name Role Phone Courtney Case MD Primary Care Provider + Encounter Details Date Type Department Care Team (Late st Contact Info) Description 06/28/2025 Orders Only GENERIC EXTERNAL DATA DEPARTMENT Provider, [...] your housing situation today? I have cristian sing 01/26/[address] you li [...] Procedure Name Priority Date/Time Associated Diagnosis Comments TSH W/REFLEX TO FT4 Routine 06/28/2025 4 :36 PM EST CBC Routine 06/28/2025 4:36 PM EST HCG, TOTAL, QN Routine 06/28/2025 4:36 PM EST documented in this encounter Results * hCG, Total, Quantitative (06/28/2025 4:36 PM EST) HCG Quantitative <2 mIU/mL [facility] Comment:Weeks post LMP Appro ximate hCG(Last Menstrual Period) Range (mIU/ml)3 - 4 weeks 9 - 1304 - 5 weeks 75 - 2,6005 - 6 weeks 850 - 20,8006 - 7 weeks 4000 - 100,2007 - 12 weeks 11,500 - 289,01415 - 16 weeks 18,300 - 137,81846 - 29 weeks (2nd trimester) 1,400 - 53,33827 - 41 weeks (3rd trimester) 940 - 60,000The Fisher B- hCG assay is used for the early detection ofpregnancy; it cannot be used to diagnose any conditionunrelated to . If a B-hCG level is not supportedby the clinical evidence, results should be confirmed by analternative method (qualitative urine hCG, for example). 06/28/2025 4:36 PM EST 06/28/2025 4:36 PM EST us Generic External Data Provider LAB BLOOD ORDERAB LES Final Result [facility] [address] [place] [phone] * TSH with Reflex to Free T4 (06/28/2025 4:36 PM EST) TSH reflex Free T4 0.82 0.32 - 4.0 uIU/mL [facility] 06/28/2025 4:36 PM EST 06/28/2025 4:36 PM EST us Generic External Data Provider LAB BLOOD ORDERAB LES Final Result Performing Organization Address City/State/[facility] Co de Phone Number [facility] [address] [place] [phone] * CBC (06/28/2025 4:36 PM EST) Pathologist [facility] White Blood Count 9.4 4.8 - 10.8 X10*3/uL [facility] Red Blood Count 4.46 4.20 - 5.50 X10*6/uL [facility] Hemoglobin 14.0 12.0 - 16.0 g/dl [facility] Hematocrit 41.7 37.0 - 47.0 % [facility] Mean Corpuscular Volume 93.5 80.0 - 98.0 fL [facility] Mean Corpuscular Hemoglobin 31.4 27.0 - 33.0 pg [facility] Mean Corpuscular HGB Conc 33.6 31.0 - 35.0 g/dl [facility] Red Cell Distribution Width 11.9 11.0 - 16.0 % [facility] Platelet Count 338 160 - 400 X10*3/uL [facility] Mean Platelet Volume 11.5 9.4 - 12.3 fL [facility] NRBC Pct Auto 0.0 0.0 - 0.2 /100WBC [facility] NRBC Abs Auto 0.000 0.0 - 0.012 X10*3/uL [facility] 06/28/2025 4:36 PM EST 06/28/2025 4:36 PM EST us Generic External Data Provider LAB BLOOD ORDERAB LES Final Result [facility] [address] [place] [phone] [phone] documented in this encounter Visit Diagnoses Not on filedocumented in this encounter Additional Health Concerns Assessment Noted Time PHQ-9 Depression Total Score: 14 023 11:45 AM EDT documented as of this encounter Care Teams Programmer Operator Numerical Control Relationship Specialty Start Date End Date Courtney Case MD [address] [place] [phone] PCP - General Family Medicine 04/18/19 documented as of this encounter
--- OUTSIDE RECORDS SUMMARY | 2025-06-28 23:18 | XMS_ITS | Encounter Summary ---
Author Organization [employer] Address [address] [place] [address] Care Team Providers Care Tour Bus Driver/Guide Name Role Phone Courtney Case MD Primary Care Provider + Encounter Details Date Type Department Care Team (Late st Contact Info) Description 11/15/2024 Orders Only [facility]S [address] [place], [place] [phone] Provider, MD Ondina Social History Tobacco Use Types Packs/Day Years [...] Comments COLPOSCOPY Routine 10/20/2024 11:19 AM EDT HM PAP/HPV Routine 10/20/2024 11:17 AM EDT documented [...] documented as of this encounter Care Teams Tour Bus Driver/Guide Relationship Specialty Start Date End Date Courtney Case MD [address] [place] [phone] PCP - General Family Medicine 04/18/19 documented as of this encounter
--- OUTSIDE RECORDS SUMMARY | 2025-06-28 23:18 | XMS_ITS | Clinical Summary ---
Author Organization [employer] Address [address] [place] [address] Care Team Providers Care Group Home Manager Name Role Phone Courtney Case MD Primary [...] exercise, life style modifications, diet, referral to family support specialist. Discussed re lower calorie intake, increase dietary fiber Dietary counseling 01/21/2023 Assessment & Plan (01/21/2023 10:13 AM EDT): Discussed re weight reduction options including exercise, life style modifications, diet, referral to family support specialist. Discussed re lower calorie intake, increase [...] pap smear this year, she will call [facility] screening specialist to schedule or will f/u next year [...] feels safe at home. 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 Follow up with [facility]: Not recommended for follow-up 2. Patient goal [...] exercise, life style modifications, diet, referral to family support specialist. Discussed re lower calorie intake, increase dietary fiber Order labs and FU with me in 3 weeks. Encounters Date Type Department Care Team Description 06/28/2025 Orders Only GENERIC EXTERNAL DATA DEPARTMENT Provider, Generic External Data from Last 3 Months Immunizations Immunization Administration Dates Next Due DTaP 11/09/1994, 3,1992,1991 [...] 78 01/26/2024 10:44 AM EDT Temperature 36.3 C (97.3 F) 01/26/2024 10:44 AM EDT Respiratory Rate 20 01/26/2024 10:44 AM EDT Oxygen Saturation 98% 01/21/2023 9:24 AM EDT Inhaled Oxygen Concentration - - Weight 76.9 kg (169 lb 8 oz) 01/26/2024 10:44 AM EDT Height 152.4 cm (5') 01/26/2024 10:44 AM EDT Body Mass Index 33.1 01/26/2024 10:44 AM EDT Plan of Treatment Health Maintenance Due Date Last Done Comments Disability Screening 1992 Alcohol/Substance Use Screening 2004 Family Planning (PISQ) 2007 Depression Monitoring 07/28/2024 01/26/2024, 023 SDOH Screening 01/25/2025 01/26/2024 COVID-19 Vaccine ( season) 2025 Influenza Vaccine (#1) 2025 Tobacco Screening 05/29/2025 05/29/2024 Cervical Cancer Screening 10/20/2025 HPV/Cotest 10/20/2025 10/20/2024, 09/27/2024 Pap Smear 10/20/2025 10/20/2024, 09/16, 06/17/2020 DTaP/Tdap/Td Vaccines (7 - Td or Tdap) [...] 01/26/2024, 12/25/2015, 1992, Additional history exists Colposcopy Discontinued 10/20/2024 Hepatitis A Vaccines Aged Out No long er eligible based on patient's age to complete this topic Meningococcal B Vaccine Aged Out No l onger eligible based on patient's age to complete this topic Meningococcal Vaccine Aged Out No joanne henry eligible based on patient's age to complete this topic Pneumococcal Vaccine: Pediatrics (0 to 5 Years) and At-Risk Patients (6 to 49) Years Aged Out No longer eligible based on patient's age to complete this topic RSV under 20 months Aged Out No longe r eligible based on patient's age to complete this topic Rotavirus Vaccines Aged Out No longer eligible based on patient's age to complete this topic Procedures Procedure Name Priority Date/Time Associated Diagnosis Comments HCG, TOTAL, QN Routine 06/28/2025 4:36 PM EST TSH W/REFLEX TO FT4 Routine 06/28/2025 4 :36 PM EST CBC Routine 06/28/2025 4:36 PM EST COLPOSCOPY Routine 10/20/2024 11:19 AM EDT HM PAP/HPV Routine 10/20/2024 11:17 AM EDT HIV 1/2 ANTIGEN/ANTIBODY, FOURTH GENERATION W/RFL Routine 01/26/2024 11:26 AM EDT Risk for sexually transmitted disease HEPATITIS PANEL, GENERAL Routine 01/26/2023 10:54 AM EDT Bacterial vaginitis LIPID PANEL WITH REFLEX TO DIRECT LDL Routine 01/26/2023 10:54 AM EDT from Last 3 Months or Most Recently Relevant to Health Maintenance Results * TSH with Reflex to Free T4 (06/28/2025 4:36 PM EST) TSH reflex Free T4 0.82 0.32 - 4.0 uIU/mL [facility] 06/28/2025 4:36 PM EST 06/28/2025 4:36 PM EST us Generic External Data Provider LAB BLOOD ORDERAB LES Final Result [facility] [address] [place] [phone] * CBC (06/28/2025 4:36 PM EST) White Blood Count 9.4 4.8 - 10.8 X10*3/uL [facility] Red Blood Count 4.46 4.20 - 5.50 X10*6/uL [facility] Hemoglobin 14.0 12.0 - 16.0 g/dl [facility] Hematocrit 41.7 37.0 - 47.0 % [facility] Mean Corpuscular Volume 93.5 80.0 - 98.0 fL [facility] Mean Corpuscular Hemoglobin 31.4 27.0 - 33.0 pg [facility] Mean Corpuscular HGB Conc 33.6 31.0 - 35.0 g/dl [facility] Red Cell Distribution Width 11.9 11.0 - 16.0 % [facility] Platelet Count 338 160 - 400 X10*3/uL [facility] Mean Platelet Volume 11.5 9.4 - 12.3 fL [facility] NRBC Pct Auto 0.0 0.0 - 0.2 /100WBC [facility] NRBC Abs Auto 0.000 0.0 - 0.012 X10*3/uL [facility] 06/28/2025 4:36 PM EST 06/28/2025 4:36 PM EST us Generic External Data Provider LAB BLOOD ORDERAB LES Final Result [facility] [address] [place] [phone] * hCG, Total, Quantitative (06/28/2025 4:36 PM EST) HCG Quantitative <2 mIU/mL [facility] Comment:Weeks post LMP Appro ximate hCG(Last Menstrual Period) Range (mIU/ml)3 - 4 weeks 9 - 1304 - 5 weeks 75 - 2,6005 - 6 weeks 850 - 20,8006 - 7 weeks 4000 - 100,2007 - 12 weeks 11,500 - 289,36859 - 16 weeks 18,300 - 137,10372 - 29 weeks (2nd trimester) 1,400 - 53,17057 - 41 weeks (3rd trimester) 940 - 60,000The Fisher B- hCG assay is used for the early detection ofpregnancy; it cannot be used to diagnose any conditionunrelated to . If a B-hCG level is not supportedby the clinical evidence, results should be confirmed by analternative method (qualitative urine hCG, for example). 06/28/2025 4:36 PM EST 06/28/2025 4:36 PM EST Generic External Data Provider LAB BLOOD ORDERAB LES Final Result [facility] [address] [place] [phone] * Colposcopy (10/20/2024 11:19 AM EDT) Historical Provider IN CLINIC/BEDSIDE ORDERAB LES Final Result * (ABNORMAL) HM PAP/HPV (10/20/2024 11:17 AM EDT) Pap Smear 2. ASCUS(A) 1. NILM HPV Detected(A ) Undetected, Indeterminate , Quantitative, Not Detected Historical Provider HEALTH MAINTENANCE Edited Result - Final * HIV-1/2 Antigen and Antibodies, Fourth Generation, with Reflexes (01/26/2024 11:26 AM EDT) HIV AB/AG Nonreactive Nonreactive [facility] Comment:HIV-1 p24 Ag and/or HIV-1/HIV-2 Ab not detected.A test result that is nonreactive does not exclude thepossibility of exposure to or infection with HIV-1 and/orHIV-2. Nonreactive results in this assay for individualswith prior exposure to HIV-1 and/or HIV-2 may be due toantigen and antibody levels that are below the limit ofdetection of this assay.The [employer] Alinity HIV Ag/Ab Combo assay result andsupplemental assay results should be interpreted inconjunction with the patient's clinical presentation,history and other laboratory results. If the results areinconsistent with clinical evidence, additional testing issuggested to confirm the result. Blood Venous blood specimen / Unknown 01/26/2024 11:26 AM EDT 01/26/2024 12:59 PM EDT Courtney Case MD LAB BLOOD ORDERABLES Fin al Result Performing Organization Address City/[facility]/ZIP Co de Phone Number [facility] [address] [place] [phone] * Lipid Panel with Reflex to Direct LDL (01/26/2023 10:54 AM EDT) Triglycerides 80 mg/dL [facility] Comment:Desirable Triglyceri de: less than 150 mg/dLBorderline High Triglyceride 150-199 mg/dLHigh Triglyceride: 200-499 mg/dLVery High Triglyceride: greater than or equal to 5OO mg/dL Cholesterol 202 mg/dL [facility] Comment:Desirable Cholestero l: less than 200 mg/dLBorderline High Cholesterol: 200-239 mg/dLHigh Cholesterol: greater than 239 mg/dL LDL Cholesterol Calculated 140 mg/dl [facility] Comment:Desirable LDL: less than 100 mg/dLNear Optimal/Above Optimal LDL: 110- 129 mg/dLBorderline High LDL: 130-159 mg/dLHigh LDL: 160-189 mg/dLVery High LDL: greater than or equal to 190 mg/dL HDL Cholesterol 46 mg/dL [facility] Comment:Desirable HDL: great er than 40 mg/dL Note: This HDL assay may give artificially low results in patients with liver disease. 01/26/2023 10:5 4 AM EDT 01/26/2023 12:59 PM EDT [facility] External Provider LAB BLO OD ORDERABLES Final Result Performing Organization Address City/[facility]/ZIP Co de Phone Number [facility] [address] [place] [phone] * Hepatitis Panel, General (01/26/2023 10:54 AM EDT) Hepatitis A IgM Nonreactive Nonreactive [facility] Comment:IgM antibodies to ORDOÑEZ V not detected; does not exclude earlyacute or recovered HAV infection. ~Hepatitis B Surface Antibody NONREACTIVE Nonreactive [facility] Comment:Nonreactive: < 8.00 mIU/mL Hepatitis B Core Antibody Nonreactive Nonreactive [facility] Hepatitis C Antibody Nonreactive Nonreactive [facility] Comment:Antibodies to HCV no t detected; does not exclude early acuteHCV infection. Hepatitis B Surface Ag Negative Negative [facility] 01/26/2023 10:5 4 AM EDT 01/26/2023 12:59 PM EDT us [facility] External Provider LAB BLO OD ORDERABLES Final Result [facility] [address] [place] [phone] from Last 3 Months or Most Recently Relevant to Health Maintenance Insurance [facility] C3 Care Teams Group Home Manager Relationship Specialty Start Date End Date Courtney Case MD [address] [place] [phone] PCP - General Family Medicine 04/18/19
[2025-06-29 05:28] LABS: CT PCR NOT DETECTED (Not Detect.); NG PCR NOT DETECTED (Not Detect.)
== END 2025-06-28 15:34 | disposition home or self-care (01) ==
LOC: HO.LAB 15:33
PROVIDERS: PCP Internal Medicine; Visit Provider Obstetrics & Gynecology
DX: N93.9 Abnormal uterine and vaginal bleeding, unspecified (principal); Z32.02 Encounter for pregnancy test, result negative; Z20.2 Contact with and (suspected) exposure to infections with a predominantly sexual mode of transmission
CPT/HCPCS: 36415; 84443; 84702; 85027; 87491; 87591